=== PATIENT | female | born 1955 | race African-American/Black ===

== ENCOUNTER → 2016-06-18 | Outpatient (CLI) | payer MEDICAID | LOC: WI 14:12 | PROVIDERS: ATTEND Internal Medicine | DX: Z12.31 Encounter for screening mammogram for malignant neoplasm of breast (principal) | CPT/HCPCS: 77067; G0202 ==

== ENCOUNTER → 2016-07-13 | Outpatient (CLI) | payer MEDICAID | LOC: WI 08:05 | PROVIDERS: ATTEND Internal Medicine Gastroenterology | DX: K74.69 Other cirrhosis of liver (principal); R11.0 Nausea; R10.13 Epigastric pain | CPT/HCPCS: 76700 ==

== ENCOUNTER 2016-08-02 20:04 | Emergency (ER) | payer MEDICAID ==
[2016-08-02] MEDS ORDERED: ONDANSETRON HCL INJ/PF 4 MG/2 ML SDV IV ONE (22:45)
[2016-08-02] MEDS ORDERED: NORMAL SALINE 1000 ML 1,000 ML IV ONE (22:45)
[2016-08-02] MEDS ORDERED: MECLIZINE HCL 25 MG TABLET PO ONE (22:45)
--- NOTE | 2016-08-02 22:49 | ER Document Report ---
ED General - General Chief Complaint: Dizziness Stated Complaint: DIZZINESS,SHORTNESS OF BREATH Notes: Patient is a 61-year-old female presents with complaint of nausea and vomiting and dizziness. She says that sometimes she feels as if things are spinning. She says if she stands up too quickly than she feels as if she may pass out. She's had some vomiting no diarrhea. Some right-sided abdominal cramping. She has a history of fibroid surgery. No other surgeries to the abdomen that she is aware of. She has history of hepatitis C and is on medications for this. She has a history of high blood pressure and also takes omeprazole for acid reflux. She is followed by hepatitis C by Dr. Choi. She denies any ongoing chest pain. She says she may have had a brief period of chest tightness when she was vomiting once. Symptoms have been intermittent since Saturday. TRAVEL OUTSIDE OF THE [place] IN LAST 30 DAYS: No - Related Data Allergies/Adverse Reactions: No Known Allergies Allergy (Verified 08/02/16 21:08) Past Medical History - Social History Smoking Status: Former Smoker Frequency of alcohol use: None Drug Abuse: None Family History: Reviewed & Not Pertinent Patient has suicidal ideation: No Patient has homicidal ideation: No - Past Medical History Cardiac Medical History: Reports: Hx Hypertension Renal/ Medical History: Denies: Hx Peritoneal Dialysis GI Medical History: Reports: Hx Gastroesophageal Reflux Disease, Hx Hepatitis - C Infectious Medical History: Reports: Hx Hepatitis - C Past Surgical History: Reports: Hx Section, Hx Gynecologic Surgery - left oophorectomy - Immunizations Hx Diphtheria, Pertussis, Tetanus Vaccination: Yes Hx Pneumococcal Vaccination: 03/20/13 Review of Systems - Review of Systems Notes: My Normal Review Basic REVIEW OF SYSTEMS: CONSTITUTIONAL : Denies fever, chills, or sweats. Denies recent illness. EENT: Denies eye, ear, throat, or mouth pain or symptoms. Denies nasal or sinus congestion. CARDIOVASCULAR: Denies chest pain. RESPIRATORY: Denies cough, cold, or chest congestion. Denies shortness of breath, difficulty breathing, or wheezing. GASTROINTESTINAL: Right-sided abdominal pain. Denies nausea, vomiting, or diarrhea. Denies constipation. Last BM: GENITOURINARY: Denies difficulty urinating, painful urination, burning, frequency, or blood in urine. FEMALE GENITOURINARY: Denies vaginal bleeding, abnormal or irregular periods. MUSCULOSKELETAL: Denies neck or back pain or joint pain or swelling. SKIN: Denies rash or skin lesions. NEUROLOGICAL: Denies altered mental status or loss of consciousness. Denies headache. Denies weakness or paralysis or loss of use of either side. Denies problems with gait or speech. Denies sensory or motor loss. ALL OTHER SYSTEMS REVIEWED AND NEGATIVE. Physical Exam - Vital signs Vitals: Temp Pulse Resp BP Pulse Ox 98.5 F 58 L 18 130/96 H 98 08/02/16 21:02 08/02/16 21:02 08/02/16 21:02 08/02/16 21:02 08/02/16 21:02 - Notes Notes: General Appearance: Well nourished, alert, cooperative, no acute distress, mild obvious discomfort. Vitals: reviewed, See vital signs table. Head: no swelling or tenderness to the head Eyes: PERRL, EOMI, Conjuctiva clear Mouth: No decreasd moisture Neck: Supple, no neck tenderness, No thyromegaly Lungs: No wheezing, No rales, No rhonci, No accessory muscle use, good air exchange bilaterally. Heart: Normal rate, Regular rythm, No murmur, no rub Abdomen: Normal BS, soft, No rigidity, mild right upper quadrant abdominal tenderness to palpation, No guarding, no rebound, no abdominal masses, no organomegaly Extremities: strength 5/5 in all extremities, good pulses in all extremities, no swelling or tenderness in the extremities, no edema. Skin: warm, dry, appropriate color, no rash Neuro: speech clear, oriented x 3, normal affect, responds appropriately to questions. Course - Vital Signs Vital signs: Temp Pulse Resp BP Pulse Ox 98.5 F 58 L 18 130/96 H 98 08/02/16 21:02 08/02/16 21:02 08/02/16 21:02 08/02/16 21:02 08/02/16 21:02 - Laboratory Result Diagrams: 08/02/16 23:13 08/02/16 23:13 Laboratory results interpreted by me: 08/02/16 08/02/16 23:13 23:13 RBC 3.53 L Hgb 11.7 L Hct 33.9 L Plt Count 140 L Seg Neutrophils % 37.0 L Lymphocytes % 53.0 H Absolute Neutrophils 1.6 L Potassium 3.4 L AST 50 H - EKG Interpretation by Me Additional EKG results interpreted by me: 08/03/16 00:28 EKG is reviewed and interpreted by me. EKG shows sinus bradycardia with a rate of [address] segment elevation or depression. Patient does have a T-wave inversion in lead V3 which is unchanged comparison to previous EKG from 2012. She also has a T-wave inversion in 3 with flattening in aVF which again are unchanged comparison to her previous EKG from 03/19/2013. GA interval is prolonged which again is unchanged. QRS duration QTC intervals are within normal range. - Transfer of Care Notes: 08/03/16 01:54 Patient is feeling much improved. She looks well and exam. She's had no further vomiting. Her pain is improved. Shunt gallbladder shows no evidence of infection or stones in the gallbladder. Images shows her chronic cirrhosis of her liver. I suspect that the pain and nausea and vomiting that she had today may have been related to her chronic liver issues. She currently feels much improved and feels safe to be discharged home. I will see her home with nausea medications. I encourage return to ER if she has trouble vomiting, fevers, recurrent pain. Patient agrees with plan and will be discharged home. Dictation of this chart was performed using voice recognition software; therefore, there may be some unintended grammatical errors. Discharge - Discharge Clinical Impression: Vomiting Qualifiers: Vomiting type: unspecified Vomiting Intractability: unspecified Nausea presence : unspecified Qualified Code(s): R11.10 - Vomiting, unspecified Abdominal pain Qualifiers: Abdominal location: right upper quadrant Qualified Code(s): R10.11 - Right upper quadrant pain Condition: Good Disposition: HOME, SELF-CARE Additional Instructions: ABDOMINAL PAIN: There are many causes of abdominal pain. Pain can mean a serious problem requiring surgery (such as appendicitis). It can also be an innocent problem that goes away on its own (such as a viral infection). Often, time must pass to determine the cause of pain. The physician does not feel that hospitalization is necessary, at present. Things may change within the next 24 hours. Call the doctor or come back for re- examination if any problems occur, such as: (1) Pain that becomes more severe, steady, or becomes concentrated in one specific area. Also, pain that is more severe with movement or coughing. (2) Vomiting that persists or becomes more frequent. (3) Blood in the vomitus, urine, or bowel movements. Blood in the stool may have a tarry or black appearance. (4) Shaking chills or fever greater than 100 degrees F. (5) The abdomen becomes more distended or swollen. (6) Bowel movements cease. (7) Failure to improve as expected. NORMAL EXAM AND WORKUP: At this time, your examination and workup show no significant abnormality. No significant abnormal physical findings are noted. All laboratory, EKG, and imaging ( ultrasound) studies that were ordered show no significant abnormality. Although your examination and all studies that were ordered showed no significant abnormal finding, there are no examinations and no studies that are 100% accurate. There is always the possibility that some abnormality could exist and not be detected with physical examination or within the limits and capabilities of laboratory and other studies. You should return or follow up as you were instructed on your visit today for further evaluation if your symptoms do not resolve. ANTINAUSEA MEDICATION: You have been given a medication to suppress nausea and vomiting. This type of medication can be given as a shot, pill, or suppository. It will usually last for many hours. Pills and shots usually last six to eight hours, suppositories last about 12 hours. For the typical illness, only one or two doses of the medication may be necessary. Mild lightheadedness may occur. This type of medicine can cause drowsiness. Do not drive or operate dangerous machinery while under its influence. Do not mix with alcohol. See your doctor at once if you have muscle spasms or tightness, or uncontrollable motions (particularly of the neck, mouth, or jaw). Persistent vomiting or severe lightheadedness should also be evaluated by the physician. FOLLOW-UP CARE: If you have been referred to a physician for follow-up care, call the physician s office for an appointment as you were instructed or within the next two days. If you experience worsening or a significant change in your symptoms, notify the physician immediately or return to the Emergency Department at any time for re-evaluation. FOLLOW-UP CARE: You should return for re-evaluation in 24 hours if you continue to have any pain. This follow-up visit is important. If you are unable to return, or feel that the return visit is unnecessary, please call us. Please return to the ER immediately if you have worsening pain, fevers, vomiting , or feel unwell. Please follow up closely with Dr. Choi for reevaluation. You can take the Zofran, nausea medication as 1 tablet every 4 hours for nausea. Referrals: GIULIANO CISNEROS MD [Primary Care Provider] - Follow up tomorrow SANDEEP CHOI MD [ACTIVE STAFF] - 08/06/16
[2016-08-02 23:52] LABS: ABSOLUTE EOSINOPHILS # (AUTO) 0.1 10^3/uL (0.0-0.6); ABSOLUTE LYMPHOCYTES (AUTO) 2.4 10^3/uL (0.5-4.7); ABSOLUTE MONOCYTES (AUTO) 0.3 10^3/uL (0.1-1.4); ABSOLUTE NEUT (AUTO) 1.6 10^3/uL (1.7-8.2); BASOPHILS % (AUTO) 0.7 % (0-2); EOSINOPHILS % (AUTO) 1.8 % (0-6); HEMATOCRIT 33.9 % (36.0-47.0); HEMOGLOBIN 11.7 g/dL (12.0-15.5); HGB HCT DIFFERENCE 1.2; MEAN CORPUSCULAR HEMOGLOBIN 33.2 pg (27.0-33.4); MEAN CORPUSCULAR HGB CONC 34.5 g/dL (32.0-36.0); MEAN CORPUSCULAR VOLUME 96 fl (80-97); MONOCYTES % (AUTO) 7.5 % (3-13); RED BLOOD COUNT 3.53 10^6/uL (3.72-5.28); RED CELL DISTRIBUTION WIDTH 13.8 % (11.5-14.0); WHITE BLOOD COUNT 4.5 10^3/uL (4.0-10.5)
[2016-08-03 00:10] LABS: ALANINE AMINOTRANSFERASE 33 U/L (9-52); ALBUMIN 4.1 g/dL (3.5-5.0); ALKALINE PHOSPHATASE 90 U/L (38-126); ANION GAP 12 (5-19); ASPARTATE AMINO TRANSFERASE 50 U/L (14-36); BILIRUBIN,DIRECT 0.2 mg/dL (0.0-0.4); BILIRUBIN,TOTAL 0.4 mg/dL (0.2-1.3); BLOOD UREA NITROGEN 13 mg/dL (7-20); CALCIUM 9.8 mg/dL (8.4-10.2); CARBON DIOXIDE 30 mmol/L (22-30); CHLORIDE 98 mmol/L (98-107); CREATINE KINASE 80 U/L (30-135); CREATININE RESULT 0.65 mg/dL (0.52-1.25); GLUCOSE 96 mg/dL (75-110); LIPASE 152.4 U/L (23-300); POTASSIUM 3.4 mmol/L (3.6-5.0); SODIUM 139.9 mmol/L (137-145)
[2016-08-03 00:19] LABS: CREATINE KINASE MB 0.52 ng/mL (<4.55)
[2016-08-03 00:27] LABS: TROPONIN I < 0.012 ng/mL
[2016-08-03 00:41] LABS: APPEARANCE,URINE SLIGHTLY-CLOUDY; BILIRUBIN,URINE NEGATIVE (NEGATIVE); GLUCOSE, URINE NEGATIVE (NEGATIVE); KETONES,URINE NEGATIVE (NEGATIVE); LEUKOCYTE ESTERASE,URINE NEGATIVE (NEGATIVE); NITRITE,URINE NEGATIVE (NEGATIVE); PROTEIN,URINE NEGATIVE (NEGATIVE); URINE SPECIFIC GRAVITY 1.005; UROBILINOGEN,URINE NEGATIVE mg/dL (<2.0)
[2016-08-03] MEDS ORDERED: ONDANSETRON ODT 4 MG TAB (6 TAB/DSPK) PO PRN (01:58)
[2016-08-03 04:15] VITALS: BP 119/72
--- NOTE | 2016-08-03 22:26 | EKG REPORT ---
SEVERITY:- ABNORMAL ECG - SINUS RHYTHM FIRST DEGREE AV BLOCK BORDERLINE LEFT AXIS DEVIATION LOW VOLTAGE IN FRONTAL LEADS BORDERLINE T ABNORMALITIES, DIFFUSE LEADS : Confirmed by: Frieda Sears MD 03-Aug-2016 22:25:45
== END 2016-08-03 04:15 | disposition home or self-care (01) ==
LOC: ER 20:04
DX: R11.2 Nausea with vomiting, unspecified (principal); R42 Dizziness and giddiness; K21.9 Gastro-esophageal reflux disease without esophagitis; R10.11 Right upper quadrant pain; R00.1 Bradycardia, unspecified; B19.20 Unspecified viral hepatitis C without hepatic coma; K74.60 Unspecified cirrhosis of liver; I10 Essential (primary) hypertension; Z79.899 Other long term (current) drug therapy; Z98.890 Other specified postprocedural states; Z87.891 Personal history of nicotine dependence; Z90.79 Acquired absence of other genital organ(s)
CPT/HCPCS: 93005; 99284; 96361; 96374; 36415; 82553; 82550; 83690; 85025; 80053; 81001; 84484; 76705; 93976; 93010; J2405; J7030

== ENCOUNTER 2016-09-04 16:20 | Emergency (ER) | payer MEDICAID ==
--- NOTE | 2016-09-04 17:39 | ER Document Report ---
ED Medical Screen (RME) - General Chief Complaint: Abdominal Pain Stated Complaint: RIGHT SIDE PAIN Time Seen by Provider: 09/04/16 17:37 Mode of Arrival: Ambulatory Information source: Patient Notes: This is a 61-year-old female with a history of hypertension, cirrhosis with abdominal pains in the past. Patient is followed by Dr. Soares as well as Dr. Choi. Patient denies any fever. She states that the pain is just been getting worse. TRAVEL OUTSIDE OF THE [place] IN LAST 30 DAYS: No - Related Data Allergies/Adverse Reactions: No Known Allergies Allergy (Verified 09/04/16 17:20) Past Medical History - Past Medical History Cardiac Medical History: Reports: Hx Hypertension Renal/ Medical History: Denies: Hx Peritoneal Dialysis GI Medical History: Reports: Hx Gastroesophageal Reflux Disease, Hx Hepatitis - C Infectious Medical History: Reports: Hx Hepatitis - C Past Surgical History: Reports: Hx Section, Hx Gynecologic Surgery - left oophorectomy - Immunizations Hx Diphtheria, Pertussis, Tetanus Vaccination: Yes Physical Exam - Vital signs Vitals: Temp Pulse Resp BP Pulse Ox 97.5 F 67 20 157/104 H 99 09/04/16 16:22 09/04/16 16:22 09/04/16 16:22 09/04/16 16:22 09/04/16 16:22 Course - Vital Signs Vital signs: Temp Pulse Resp BP Pulse Ox 97.5 F 67 20 157/104 H 99 09/04/16 16:22 09/04/16 16:22 09/04/16 16:22 09/04/16 16:22 09/04/16 16:22
[2016-09-04 19:02] LABS: ABSOLUTE LYMPHOCYTES (AUTO) 2.3 10^3/uL (0.5-4.7); ABSOLUTE MONOCYTES (AUTO) 0.4 10^3/uL (0.1-1.4); ABSOLUTE NEUT (AUTO) 3.8 10^3/uL (1.7-8.2); BASOPHILS % (AUTO) 0.8 % (0-2); EOSINOPHILS % (AUTO) 0.5 % (0-6); HEMATOCRIT 36.1 % (36.0-47.0); HEMOGLOBIN 12.4 g/dL (12.0-15.5); HGB HCT DIFFERENCE 1.1; LYMPHOCYTES % (AUTO) 34.7 % (13-45); MEAN CORPUSCULAR HEMOGLOBIN 33.5 pg (27.0-33.4); MEAN CORPUSCULAR HGB CONC 34.3 g/dL (32.0-36.0); MEAN CORPUSCULAR VOLUME 98 fl (80-97); MONOCYTES % (AUTO) 6.1 % (3-13); RED BLOOD COUNT 3.69 10^6/uL (3.72-5.28); RED CELL DISTRIBUTION WIDTH 13.3 % (11.5-14.0); SEGMENTED NEUTROPHILS % (AUTO) 57.9 % (42-78); WHITE BLOOD COUNT 6.5 10^3/uL (4.0-10.5)
[2016-09-04 19:03] LABS: APPEARANCE,URINE CLEAR; BILIRUBIN,URINE NEGATIVE (NEGATIVE); GLUCOSE, URINE NEGATIVE (NEGATIVE); KETONES,URINE NEGATIVE (NEGATIVE); LEUKOCYTE ESTERASE,URINE NEGATIVE (NEGATIVE); NITRITE,URINE NEGATIVE (NEGATIVE); PROTEIN,URINE NEGATIVE (NEGATIVE); URINE SPECIFIC GRAVITY 1.008
[2016-09-04 19:21] LABS: ALANINE AMINOTRANSFERASE 30 U/L (9-52); ALBUMIN 4.1 g/dL (3.5-5.0); ALKALINE PHOSPHATASE 66 U/L (38-126); ANION GAP 8 (5-19); ASPARTATE AMINO TRANSFERASE 48 U/L (14-36); BILIRUBIN,DIRECT 0.5 mg/dL (0.0-0.4); BILIRUBIN,TOTAL 0.9 mg/dL (0.2-1.3); BLOOD UREA NITROGEN 12 mg/dL (7-20); CARBON DIOXIDE 33 mmol/L (22-30); CHLORIDE 97 mmol/L (98-107); CREATININE RESULT 0.79 mg/dL (0.52-1.25); GLUCOSE 96 mg/dL (75-110); LIPASE 106.1 U/L (23-300); POTASSIUM 3.6 mmol/L (3.6-5.0); SODIUM 138.3 mmol/L (137-145); TOTAL PROTEIN 8.4 g/dL (6.3-8.2)
--- NOTE | 2016-09-04 21:30 | ER Document Report ---
ED General - General Chief Complaint: Abdominal Pain Stated Complaint: RIGHT SIDE PAIN Time Seen by Provider: 09/04/16 17:37 Mode of Arrival: Ambulatory Notes: Patient is a 61-year-old female with past medical history of hypertension and hyperlipidemia who presents with concerns of 24 hours of a constant, aching, throbbing pain to her suprapubic and left lower quadrant. States that she's intermittent abdominal pain the past but never to this degree of severity or that has persisted for this long. She has not seen her primary care doctor regarding today's concerns. Nothing improves or worsens this pain. She denies any associated nausea, vomiting, diarrhea, fever, melena, hematochezia, chest pain or shortness of breath. TRAVEL OUTSIDE OF THE [place] IN LAST 30 DAYS: No - Related Data Allergies/Adverse Reactions: No Known Allergies Allergy (Verified 09/04/16 17:20) Past Medical History - General Information source: Patient - Social History Smoking Status: Never Smoker Frequency of alcohol use: None Drug Abuse: None Lives with: Family Family History: Reviewed & Not Pertinent Patient has suicidal ideation: No Patient has homicidal ideation: No - Past Medical History Cardiac Medical History: Reports: Hx Hypertension Renal/ Medical History: Denies: Hx Peritoneal Dialysis GI Medical History: Reports: Hx Gastroesophageal Reflux Disease, Hx Hepatitis - C Infectious Medical History: Reports: Hx Hepatitis - C Past Surgical History: Reports: Hx Section, Hx Gynecologic Surgery - left oophorectomy - Immunizations Hx Diphtheria, Pertussis, Tetanus Vaccination: Yes Hx Pneumococcal Vaccination: 03/20/13 Review of Systems - Review of Systems Notes: Constitutional: Negative for fever. HENT: Negative for sore throat. Eyes: Negative for visual changes. Cardiovascular: Negative for chest pain. Respiratory: Negative for shortness of breath. Gastrointestinal: Positive for abdominal pain Genitourinary: Negative for dysuria. Musculoskeletal: Negative for back pain. Skin: Negative for rash. Neurological: Negative for headaches, weakness or numbness. 10 point ROS negative except as marked above and in HPI. Physical Exam - Vital signs Vitals: Temp Pulse Resp BP Pulse Ox 97.5 F 67 20 157/104 H 99 09/04/16 16:22 09/04/16 16:22 09/04/16 16:22 09/04/16 16:22 09/04/16 16:22 Interpretation: Hypertensive Notes: PHYSICAL EXAMINATION: GENERAL: Well-appearing, well-nourished and in no acute distress. HEAD: Atraumatic, normocephalic. EYES: Pupils equal round and reactive to light, extraocular movements intact, sclera anicteric, conjunctiva are normal. ENT: nares patent, oropharynx clear without exudates. Moist mucous membranes. NECK: Normal range of motion, supple without lymphadenopathy LUNGS: Breath sounds clear to auscultation bilaterally and equal. No wheezes rales or rhonchi. HEART: Regular rate and rhythm without murmurs ABDOMEN: Soft, mild tenderness the suprapubic and left lower quadrants, normoactive bowel sounds. No guarding, no rebound. No masses appreciated. EXTREMITIES: Normal range of motion, no pitting or edema. No cyanosis. NEUROLOGICAL: No focal neurological deficits. Moves all extremities spontaneously and on command. PSYCH: Normal mood, normal affect. SKIN: Warm, Dry, normal turgor, no rashes or lesions noted. Course - Re-evaluation Re-evalutation: 09/04/16 21:29 Patient presents with 24 hours of progressively worsening lower abdominal pain mostly localized left lower quadrant on exam. She is otherwise well appearance , no acute distress, vitals normal limits. Labs are overall unremarkable. Will proceed with CT the abdomen and pelvis given patient's age and focal tenderness on exam concerning for possible acute diverticulitis less likely an acute bowel obstruction or bowel perforation. Clinical history and exam are not consistent with mesenteric ischemia. 09/04/16 23:26 CT scan demonstrates a calcified uterine fibroid which could explain some patient's pain given that her pain is over the left lower and suprapubic region on exam. She otherwise remains well in appearance of this time and in no acute distress. Vitals otherwise within normal limits. Discharge with [facility] follow- up.At this time will discharge with return precautions and follow-up recommendations. Verbal discharge instructions given a the bedside and opportunity for questions given. Medication warnings reviewed. Patient is in agreement with this plan and has verbalized understanding of return precautions and the need for primary care follow-up in the next 24-72 hours. - Vital Signs Vital signs: Temp Pulse Resp BP Pulse Ox 97.6 F 89 16 130/77 H 96 09/05/16 00:12 09/05/16 00:12 09/05/16 00:12 09/05/16 00:12 09/05/16 00:12 - Laboratory Result Diagrams: 09/04/16 18:47 09/04/16 18:47 Laboratory results interpreted by me: 09/04/16 09/04/16 09/04/16 18:47 18:47 18:47 RBC 3.69 L MCV 98 H MCH 33.5 H Chloride 97 L Carbon Dioxide 33 H Direct Bilirubin 0.5 H AST 48 H Total Protein 8.4 H Urine Urobilinogen 2.0 H - Diagnostic Test Radiology reviewed: Reports reviewed Discharge - Discharge Clinical Impression: Abdominal pain Qualifiers: Abdominal location: lower abdomen, unspecified Qualified Code(s): R10.30 - Lower abdominal pain, unspecified Uterine fibroid Qualifiers: Uterine leiomyoma location: unspecified location Qualified Code(s): D25.9 - Leiomyoma of uterus, unspecified Condition: Good Disposition: HOME, SELF-CARE Additional Instructions: You have been seen in the Emergency Department (ED) for abdominal pain. Your evaluation did not identify a clear cause of your symptoms but was generally reassuring. You do have uterine fibroids on your CT scan which may account for some of your discomfort. Please follow-up with [facility] at your earliest ability. Please follow up with your doctor as soon as possible regarding today's emergent visit and the symptoms that are bothering you. Return to the ED if your abdominal pain worsens or fails to improve, you develop bloody vomiting, bloody diarrhea, you are unable to tolerate fluids due to vomiting, fever greater than 101, or other symptoms that concern you. Referrals: GIULIANO CISNEROS MD [Primary Care Provider] - Follow up as needed JESSA SKY MD [ACTIVE STAFF] - Follow up as needed
[2016-09-04] MEDS ORDERED: ACETAMINOPHEN 325 MG TABLET PO ONE (23:31)
[2016-09-04] MEDS ORDERED: IBUPROFEN 600 MG TABLET PO ONE (23:31)
[2016-09-05 00:13] VITALS: BP 130/77
== END 2016-09-05 | disposition home or self-care (01) ==
LOC: ER 16:20
DX: R10.30 Lower abdominal pain, unspecified (principal); D25.9 Leiomyoma of uterus, unspecified; I10 Essential (primary) hypertension; E78.5 Hyperlipidemia, unspecified; K21.9 Gastro-esophageal reflux disease without esophagitis; Z86.19 Personal history of other infectious and parasitic diseases
CPT/HCPCS: 99284; 36415; 83690; 85025; 85610; 80053; 81001; 74177; J3490 ×2

== ENCOUNTER 2016-10-11 04:27 | Emergency (ER) | payer MEDICAID ==
[2016-10-11 04:53] LABS: ABSOLUTE BASOPHILS # (AUTO) 0.1 10^3/uL (0.0-0.2); ABSOLUTE EOSINOPHILS # (AUTO) 0.1 10^3/uL (0.0-0.6); ABSOLUTE LYMPHOCYTES (AUTO) 2.8 10^3/uL (0.5-4.7); ABSOLUTE MONOCYTES (AUTO) 0.5 10^3/uL (0.1-1.4); ABSOLUTE NEUT (AUTO) 3.6 10^3/uL (1.7-8.2); BASOPHILS % (AUTO) 0.8 % (0-2); EOSINOPHILS % (AUTO) 0.7 % (0-6); HEMATOCRIT 38.1 % (36.0-47.0); HEMOGLOBIN 12.9 g/dL (12.0-15.5); HGB HCT DIFFERENCE 0.6; LYMPHOCYTES % (AUTO) 40.4 % (13-45); MEAN CORPUSCULAR HEMOGLOBIN 32.9 pg (27.0-33.4); MEAN CORPUSCULAR HGB CONC 33.8 g/dL (32.0-36.0); MEAN CORPUSCULAR VOLUME 97 fl (80-97); MONOCYTES % (AUTO) 7.2 % (3-13); RED BLOOD COUNT 3.91 10^6/uL (3.72-5.28); SEGMENTED NEUTROPHILS % (AUTO) 50.9 % (42-78)
[2016-10-11 05:07] LABS: ALANINE AMINOTRANSFERASE 45 U/L (9-52); ALBUMIN 4.5 g/dL (3.5-5.0); ALKALINE PHOSPHATASE 91 U/L (38-126); ANION GAP 13 (5-19); ASPARTATE AMINO TRANSFERASE 99 U/L (14-36); BILIRUBIN,DIRECT 0.5 mg/dL (0.0-0.4); BILIRUBIN,TOTAL 1.2 mg/dL (0.2-1.3); BLOOD UREA NITROGEN 9 mg/dL (7-20); CALCIUM 10.2 mg/dL (8.4-10.2); CARBON DIOXIDE 30 mmol/L (22-30); CHLORIDE 99 mmol/L (98-107); CREATININE RESULT 0.78 mg/dL (0.52-1.25); GLUCOSE 109 mg/dL (75-110); LIPASE 174.5 U/L (23-300); POTASSIUM 3.3 mmol/L (3.6-5.0); SODIUM 142.3 mmol/L (137-145); TOTAL PROTEIN 9.3 g/dL (6.3-8.2)
[2016-10-11 05:24] LABS: APPEARANCE,URINE CLEAR; BILIRUBIN,URINE NEGATIVE (NEGATIVE); GLUCOSE, URINE NEGATIVE (NEGATIVE); KETONES,URINE TRACE mg/dL (NEGATIVE); LEUKOCYTE ESTERASE,URINE NEGATIVE (NEGATIVE); NITRITE,URINE NEGATIVE (NEGATIVE); PROTEIN,URINE NEGATIVE (NEGATIVE); URINE SPECIFIC GRAVITY 1.005
[2016-10-11] MEDS ORDERED: LIDOCAINE 2% VISCOUS SOLN 20 ML UDCUP PO ONE ×2 (06:30→07:59)
[2016-10-11] MEDS ORDERED: MAG HYDROX/AL HYDROX/SIMETH SUSP 30 ML UDCUP PO ONE ×2 (06:30→07:59)
[2016-10-11] MEDS ORDERED: FAMOTIDINE INJ/PF 20 MG/2 ML SDV IV ONE (06:31)
--- NOTE | 2016-10-11 06:38 | ER Document Report ---
ED GI/ - General Mode of Arrival: Medic Information source: Patient TRAVEL OUTSIDE OF THE [place] IN LAST 30 DAYS: No - HPI Patient complains to provider of: Abdominal pain Onset: Yesterday Timing/Duration: Sudden, Persistent Location: Epigastric Associated symptoms: Fever - Subjective <SHILPA PEÑA - Last Filed: 10/11/16 06:31> <SAJAN LEIGH - Last Filed: 10/11/16 09:02> - General Chief Complaint: Abdominal Pain Stated Complaint: ABDOMINAL PAIN Time Seen by Provider: 10/11/16 06:20 Notes: Patient is a 61-year-old female presenting to the emergency department concerned of epigastric abdominal pain onset yesterday continuing into today. Patient states that she frequently experiences indigestion and constipation. Patient's last bowel movement was yesterday morning after she took a laxative that was prescribed by her primary care provider, Dr. Cisneros. Patient states that she been experiencing a mild fever and has been "gagging". (SHILPA PEÑA) - Related Data Allergies/Adverse Reactions: No Known Allergies Allergy (Verified 09/04/16 17:20) Past Medical History - General Information source: Patient - Social History Smoking Status: Never Smoker Family History: Reviewed & Not Pertinent - Past Medical History Cardiac Medical History: Reports: Hx Hypertension GI Medical History: Reports: Hx Cirrhosis, Hx Gastroesophageal Reflux Disease, Hx Hepatitis - C Infectious Medical History: Reports: Hx Hepatitis - C Past Surgical History: Reports: Hx Section, Hx Gynecologic Surgery - left oophorectomy - Immunizations Hx Diphtheria, Pertussis, Tetanus Vaccination: Yes Hx Pneumococcal Vaccination: 03/20/13 <SHILPA PEÑA - Last Filed: 10/11/16 06:31> Review of Systems - Review of Systems Constitutional: See HPI, Fever - "mild" subjective EENT: No symptoms reported Cardiovascular: No symptoms reported Respiratory: No symptoms reported Gastrointestinal: See HPI, Abdominal pain, Vomiting - "gagging" Genitourinary: No symptoms reported Female Genitourinary: No symptoms reported Musculoskeletal: No symptoms reported Skin: No symptoms reported Hematologic/Lymphatic: No symptoms reported Neurological/Psychological: No symptoms reported -: Yes All other systems reviewed and negative <SHILPA PEÑA - Last Filed: 10/11/16 06:31> Physical Exam - General General appearance: Alert In distress: None - HEENT Head: Normocephalic, Atraumatic Eyes: Normal Pupils: PERRL - Respiratory Respiratory status: No respiratory distress Chest status: Nontender Breath sounds: Normal Chest palpation: Normal - Cardiovascular Rhythm: Regular Heart sounds: Normal auscultation Murmur: No - Abdominal Inspection: Obese - Soft Tenderness: Tender - Epigastric tenderness to palpation - Back Back: Normal, Nontender - Extremities General upper extremity: Normal inspection, Nontender General lower extremity: Normal inspection, Nontender - Neurological Neuro grossly intact: Yes Cognition: Normal Orientation: AAOx4 [place] Coma Scale Eye Opening: Spontaneous Angela Coma Scale Verbal: Oriented [place] Coma Scale Motor: Obeys Commands [place] Coma Scale Total: 15 Speech: Normal - Psychological Associated symptoms: Normal affect, Normal mood - Skin Skin Temperature: Warm Skin Moisture: Dry Skin Color: Normal <SHILPA PEÑA - Last Filed: 10/11/16 06:31> Course - Laboratory Result Diagrams: 10/11/16 04:35 10/11/16 04:35 <SHILPA PEÑA - Last Filed: 10/11/16 06:31> - Laboratory Result Diagrams: 10/11/16 04:35 10/11/16 04:35 <SAJAN LEIGH - Last Filed: 10/11/16 09:02> - Re-evaluation Re-evalutation: 10/11/16 08:00 Patient was taking a nap at this time. She is awakened for reevaluation. He reports when she drank the GI cocktail, it came back up. It did provide some relief but that seemed to be wearing off. On exam there is some epigastric palpation tenderness, but not nearly as bad as initially. She will receive another GI cocktail. 10/11/16 08:59 Patient is again napping. She is awakened for reexam. A second GI cocktail made the pain improve as did the first. She is not really tender to palpate at this time. By history she does have omeprazole at home but is quite vague about whether or not she actually takes it. (SAJAN LEIGH) - Vital Signs Vital signs: Temp Pulse Resp BP Pulse Ox 167/93 H 96 10/11/16 08:03 10/11/16 08:03 - Laboratory Laboratory results interpreted by me: 10/11/16 10/11/16 04:35 05:00 Potassium 3.3 L Direct Bilirubin 0.5 H AST 99 H Total Protein 9.3 H Urine Ketones TRACE H Urine Urobilinogen 2.0 H Discharge <SHILPA PEÑA - Last Filed: 10/11/16 06:31> <SAJAN LEIGH - Last Filed: 10/11/16 09:02> - Discharge Clinical Impression: Epigastric abdominal pain Gastro-esophageal reflux Qualifiers: Esophagitis presence: esophagitis presence not specified Qualified Code(s): K21.9 - Gastro-esophageal reflux disease without esophagitis Condition: Stable Disposition: HOME, SELF-CARE Additional Instructions: Reflux Disease (GERD): Gastro-Esophageal Reflux Disease (GERD) is caused by stomach acid refluxing back up into the esophagus. The valve at the end of the esophagus may be weak. This is common in persons with a hiatal hernia. GERD symptoms can include indigestion, chest pain, heartburn, or food "sticking." Certain foods, alcohol, and aspirin can make GERD worse. Treatment depends on the severity. Usually, antacids or acid-suppressing medicines are used. When the esophagus is acutely inflamed, the physician will often prescribe membrane-protective drugs such as Carafate. Some patients benefit from medication such as Reglan that tightens the valve at the top of the stomach. Avoid those foods that bring on your symptoms. For many people, these foods are coffee, chocolate, onions, garlic, and carbonated drinks. Don't use alcohol, aspirin, caffeine, or tobacco. Don't eat late at night -- within 4 hours of bedtime. Don't over-eat. If necessary, elevate the head of your bed about 4 inches so that stomach acid will not roll up into your esophagus. Call the doctor if you develop severe chest pain, inability to swallow fluids, fever, or worsening symptoms. //////////////////////////////////////////////////////////////////////////////// //////////////////////////////////////////////////////////// Be sure to take your omeprazole every day. Eat a bland diet. Take antacids between meals and at bedtime. Follow-up with Dr. Cisneros in the next few days if not improving. RETURN TO THE EMERGENCY ROOM IF ANY NEW OR WORSENING SYMPTOMS. Referrals: SANDEEP VASQUEZ MD [Primary Care Provider] - Follow up as needed GIULIANO CISNEROS MD [ACTIVE STAFF] - Follow up in 3-5 days Scribe Attestation: 10/11/16 09:02 I personally performed the services described in the documentation, reviewed and edited the documentation which was dictated to the scribe in my presence, and it accurately records my words and actions. (SAJAN LEIGH) Scribe Documentation - Scribe Written by Agatha:: Agatha Estes, 10/11/2016 0631 acting as scribe for :: Aletha <SHILPA PEÑA - Last Filed: 10/11/16 06:31>
--- NOTE | 2016-10-11 07:11 | RADIOLOGY REPORT (SQ) ---
EXAM DESCRIPTION: KUB/ABDOMEN (SINGLE VIEW) COMPLETED DATE/TIME: 10/11/2016 7:01 am REASON FOR STUDY: abd pain, constipation COMPARISON: 05/12/2015. NUMBER OF VIEWS: One view. TECHNIQUE: Supine radiographic image of the abdomen acquired. LIMITATIONS: None. FINDINGS: BOWEL GAS PATTERN: Normal bowel gas pattern. No dilated loops. CALCIFICATIONS: 3.3 cm uterine fibroid of the mid pelvis. SOFT TISSUES: No gross mass or suggestion of organomegaly. HARDWARE: None in the abdomen. BONES: No acute fracture. No worrisome bone lesions. OTHER: No other significant finding. IMPRESSION: NO RADIOGRAPHIC EVIDENCE FOR ACUTE ABDOMINAL DISEASE. Uterine fibroid. TECHNICAL DOCUMENTATION: JOB ID: [id number] [employer] All Rights Reserved
[2016-10-11 09:07] VITALS: BP 137/81
== END 2016-10-11 09:19 | disposition home or self-care (01) ==
LOC: ER 04:27
DX: K21.9 Gastro-esophageal reflux disease without esophagitis (principal); K59.00 Constipation, unspecified; R10.13 Epigastric pain; I10 Essential (primary) hypertension
CPT/HCPCS: 99284; 96374; 36415; 83690; 85025; 80053; 81001; 74000; J3490 ×2; S0028

== ENCOUNTER 2016-10-12 12:25 | Inpatient (IN) | payer MEDICAID ==
--- NOTE | 2016-10-12 13:01 | ER Document Report ---
ED GI/ - General Chief Complaint: Abdominal Pain Stated Complaint: DIRECT ADMIT/ABDOMINAL PAIN Time Seen by Provider: 10/12/16 12:58 Mode of Arrival: Wheelchair Information source: Patient, Relative TRAVEL OUTSIDE OF THE [place] IN LAST 30 DAYS: No - HPI Patient complains to provider of: Abdominal pain, Vomiting Onset: Last week Timing/Duration: Persistent Quality of pain: Achy Severity at maximum: Moderate Severity in ED: Moderate Pain Level: 4 Location: Epigastric, RUQ Associated symptoms: Nausea, Vomiting Exacerbated by: Denies Relieved by: Denies Similar symptoms previously: Yes Recently seen / treated by doctor: Yes Notes: 10/12/16 14:17 Patient is a 61-year-old female who was sent to the emergency room by primary care provider for direct admission related to abdominal pain that has been persistent for at least the past week, unfortunately there were no beds available so she was sent to the emergency room to be held for admission, patient does report right upper quadrant and epigastric abdominal pain, it is been worsening over the past week, she has nausea and "gagging", she is chills but no fever, denies urinary symptoms, was seen in this emergency room yesterday for similar symptoms - Related Data Allergies/Adverse Reactions: No Known Allergies Allergy (Verified 10/12/16 12:43) Past Medical History - General Information source: Patient - Social History Smoking Status: Unknown if Ever Smoked Family History: Reviewed & Not Pertinent Patient has suicidal ideation: No Patient has homicidal ideation: No - Past Medical History Cardiac Medical History: Reports: Hx Hypertension Renal/ Medical History: Denies: Hx Peritoneal Dialysis GI Medical History: Reports: Hx Cirrhosis, Hx Gastroesophageal Reflux Disease, Hx Hepatitis - C Infectious Medical History: Reports: Hx Hepatitis - C Past Surgical History: Reports: Hx Section, Hx Gynecologic Surgery - left oophorectomy - Immunizations Hx Diphtheria, Pertussis, Tetanus Vaccination: Yes Hx Pneumococcal Vaccination: 03/20/13 Review of Systems - Review of Systems Constitutional: No symptoms reported EENT: No symptoms reported Cardiovascular: No symptoms reported Respiratory: No symptoms reported Gastrointestinal: See HPI Genitourinary: No symptoms reported Female Genitourinary: No symptoms reported Musculoskeletal: No symptoms reported Skin: No symptoms reported Hematologic/Lymphatic: No symptoms reported Neurological/Psychological: No symptoms reported -: Yes All other systems reviewed and negative Physical Exam - Vital signs Vitals: Temp Pulse Resp BP Pulse Ox 98.4 F 66 20 146/94 H 97 10/12/16 12:43 10/12/16 12:43 10/12/16 12:43 10/12/16 12:43 10/12/16 12:43 Interpretation: Hypertensive - General General appearance: Alert Notes: Appears to be in pain - HEENT Head: Normocephalic, Atraumatic Eyes: Normal Conjunctiva: Normal Extraocular movements intact: Yes Eyelashes: Normal Pupils: PERRL Mucous membranes: Moist Pharynx: Normal - Respiratory Respiratory status: No respiratory distress - Cardiovascular Rhythm: Regular Heart sounds: Normal auscultation Murmur: No - Abdominal Inspection: Normal Distension: No distension Bowel sounds: Normal Tenderness: Tender - Epigastric and right upper quadrant Organomegaly: No organomegaly - Back Back: Normal - Extremities General upper extremity: Normal inspection, Nontender, Normal color, Normal ROM , Normal temperature General lower extremity: Normal inspection, Nontender, Normal color, Normal ROM , Normal temperature. No: Celi's sign - Neurological Neuro grossly intact: Yes Cognition: Normal Orientation: AAOx4 [place] Coma Scale Eye Opening: Spontaneous [place] Coma Scale Verbal: Oriented [place] Coma Scale Motor: Obeys Commands [place] Coma Scale Total: 15 Speech: Normal Motor strength normal: LUE, RUE, LLE, RLE Sensory: Normal - Psychological Associated symptoms: Normal affect, Normal mood - Skin Skin Temperature: Warm Skin Moisture: Dry Skin Color: Normal Course - Re-evaluation Re-evalutation: 10/12/16 14:19 A brief call was made to Dr. Santiago who does confirm the intended for patient to be a direct admission for abdominal pain, notified him that there were no beds available and patient will be held in the emergency room until a bed becomes available, he is in agreement with this plan is recommended orders have been ordered in the emergency room - Vital Signs Vital signs: Temp Pulse Resp BP Pulse Ox 98.4 F 66 20 146/94 H 97 10/12/16 12:43 10/12/16 12:43 10/12/16 12:43 10/12/16 12:43 10/12/16 12:43 - Laboratory Result Diagrams: 10/12/16 13:35 10/12/16 13:35 - Diagnostic Test Radiology reviewed: Image reviewed, Reports reviewed - Consults Dr Santiago Reason for consultation: 10/12/16 13:08 patient was discussed, he requested Direct admit, unfortunately no available beds at this time, will hold in Ed with recomended treatment, labs, imaging Discharge - Discharge Clinical Impression: Abdominal pain Qualifiers: Abdominal location: generalized Qualified Code(s): R10.84 - Generalized abdominal pain Condition: Stable Disposition: ADMITTED OBSERVATION Admitting Provider: Pamela Unit Admitted: Telemetry
[2016-10-12] MEDS ORDERED: HYDROMORPHONE HCL INJ/PF 2 MG/ML AMPULE IV ONE (13:02)
[2016-10-12] MEDS ORDERED: NORMAL SALINE 1000 ML 1,000 ML IV PRN ×2 (13:02→14:19)
[2016-10-12 13:51] LABS: ABSOLUTE LYMPHOCYTES (AUTO) 2.8 10^3/uL (0.5-4.7); ABSOLUTE MONOCYTES (AUTO) 0.5 10^3/uL (0.1-1.4); ABSOLUTE NEUT (AUTO) 3.5 10^3/uL (1.7-8.2); BASOPHILS % (AUTO) 0.6 % (0-2); EOSINOPHILS % (AUTO) 0.6 % (0-6); HEMATOCRIT 43.5 % (36.0-47.0); HEMOGLOBIN 14.4 g/dL (12.0-15.5); HGB HCT DIFFERENCE -0.3; LYMPHOCYTES % (AUTO) 40.4 % (13-45); MEAN CORPUSCULAR HEMOGLOBIN 32.1 pg (27.0-33.4); MEAN CORPUSCULAR HGB CONC 33.1 g/dL (32.0-36.0); MEAN CORPUSCULAR VOLUME 97 fl (80-97); MONOCYTES % (AUTO) 6.9 % (3-13); RED BLOOD COUNT 4.48 10^6/uL (3.72-5.28); RED CELL DISTRIBUTION WIDTH 13.3 % (11.5-14.0); SEGMENTED NEUTROPHILS % (AUTO) 51.5 % (42-78); WHITE BLOOD COUNT 6.8 10^3/uL (4.0-10.5)
[2016-10-12 14:07] LABS: ALANINE AMINOTRANSFERASE 49 U/L (9-52); ALBUMIN 4.9 g/dL (3.5-5.0); ALKALINE PHOSPHATASE 85 U/L (38-126); ANION GAP 17 (5-19); ASPARTATE AMINO TRANSFERASE 76 U/L (14-36); BILIRUBIN,DIRECT 0.7 mg/dL (0.0-0.4); BILIRUBIN,TOTAL 1.4 mg/dL (0.2-1.3); BLOOD UREA NITROGEN 16 mg/dL (7-20); CARBON DIOXIDE 29 mmol/L (22-30); CHLORIDE 94 mmol/L (98-107); GLUCOSE 82 mg/dL (75-110); LIPASE 208.5 U/L (23-300); SODIUM 139.9 mmol/L (137-145); TOTAL PROTEIN 10.2 g/dL (6.3-8.2)
[2016-10-12] MEDS: HYDROMORPHONE HCL INJ/PF 2 MG/ML AMPULE IV SCH ×2 (14:27→22:22)
--- NOTE | 2016-10-12 14:32 | RADIOLOGY REPORT (SQ) ---
EXAM DESCRIPTION: CT ABD/PELVIS WITH IV ONLY COMPLETED DATE/TIME: 10/12/2016 1:58 pm REASON FOR STUDY: right side abd pain COMPARISON: CT abdomen pelvis 09/04/2016 TECHNIQUE: CT scan of the abdomen and pelvis performed using helical scanning technique with dynamic intravenous contrast injection. No oral contrast. Images reviewed with lung, soft tissue, and bone windows. Reconstructed coronal and sagittal MPR imag es reviewed. Delayed images for evaluation of the urinary system also acquired. All images stored on PACS. All CT scanners at this facility use dose modulation, iterative reconstruction, and/or weight based d osing when appropriate to reduce radiation dose to as low as reasonably achievable (ALARA). [facility]: Dose Right [facility]: CareDose [facility]: Dose Right [facility]: Teradose 4D [facility]: Depop CONTRAST TYPE AND DOSE: contrast/concentration: Isovue 370.00 mg/ml; Total Contrast Delivered: 74.0 ml; Total Saline Delivered: 66.0 ml RENAL FUNCTION: Creatinine 0.78 RADIATION DOSE: 12.65. LIMITATIONS: None. FINDINGS: LOWER CHEST: No significant findings. No nodules or infiltrates. LIVER: Normal size. No masses or dilated ducts. Nodular contour along the left lobe and inferior rig ht lobe liver, question underlying cirrhosis SPLEEN: Normal size. No focal lesions. PANCREAS: No masses. No significant calcifications. No adjacent inflammation or peripancreatic fluid collections. Pancreatic duct not dilated. GALLBLADDER: No identified stones by CT criteria. No inflammatory changes to suggest cholecystitis. ADRENAL GLANDS: No significant masses or asymmetry. RIGHT KIDNEY AND URETER: No solid masses. No significant calcifications. No hydronephrosis or hyd roureter. LEFT KIDNEY AND URETER: No solid masses. No significant calcifications. No hydronephrosis or hydr oureter. AORTA AND VESSELS: No aneurysm. No dissection. Renal arteries, SMA, celiac without stenosis. RETROPERITONEUM: No retroperitoneal adenopathy, hemorrhage or masses. BOWEL AND PERITONEAL CAVITY: No masses or inflammatory changes. No free fluid or peritoneal masses. APPENDIX: Normal. PELVIS: No mass or free fluid. Normal bladder. Normal size female pelvic organs with calcified fibro id along the uterus fundus 2.5 cm in size ABDOMINAL WALL: No masses. No hernias. BONES: Degenerative disc changes at L3-4 with central canal stenosis OTHER: No other significant finding. IMPRESSION: NO SIGNIFICANT OR ACUTE FINDING IN THE ABDOMEN OR PELVIS ON CT SCAN WITH IV CONTRAST. TECHNICAL DOCUMENTATION: JOB ID: [id number] Quality ID # [id number]: Final reports with documentation of one or more dose reduction techniques (e.g., Au tomated exposure control, adjustment of the mA and/or kV according to patient size, use of iterative reconstruction technique) 2010 [employer]- All Rights Reserved
[2016-10-12 14:43] LABS: ALANINE AMINOTRANSFERASE 51 U/L (9-52); ALBUMIN 4.8 g/dL (3.5-5.0); ALKALINE PHOSPHATASE 83 U/L (38-126); AMYLASE 206 U/L (30-110); ASPARTATE AMINO TRANSFERASE 78 U/L (14-36); BILIRUBIN,DIRECT 0.7 mg/dL (0.0-0.4); BILIRUBIN,TOTAL 1.4 mg/dL (0.2-1.3)
[2016-10-12] MEDS: NORMAL SALINE 1000 ML 1,000 ML IV PRN (14:52)
[2016-10-12 19:33] LABS: APPEARANCE,URINE CLEAR; BILIRUBIN,URINE NEGATIVE (NEGATIVE); GLUCOSE, URINE NEGATIVE (NEGATIVE); KETONES,URINE 20 mg/dL (NEGATIVE); LEUKOCYTE ESTERASE,URINE NEGATIVE (NEGATIVE); NITRITE,URINE NEGATIVE (NEGATIVE); PROTEIN,URINE NEGATIVE (NEGATIVE); UROBILINOGEN,URINE NEGATIVE mg/dL (<2.0)
[2016-10-12 19:37] LABS: URINE SPECIFIC GRAVITY > 1.060
--- NOTE | 2016-10-12 20:23 | PDOC H&P ---
History of Present Illness Admission Date/PCP: 10/12/16 13:35 GIULIANO CISNEROS MD History of Present Illness: ROBERTO CARLOS BRITT is a 61 year old female, she came to the office today for evaluation of abdominal pain. She was seen in the emergency room yesterday for the same problem. When she came to the office this afternoon she was very upset she was crying complaining of abdominal pain. I logged in to the hospital system to review the management in the emergency room yesterday, she apparently had a KUB, hemogram and metabolic panel and they were negative and she was discharged from the ER. Patient was examined in the office she was tender in the right lower quadrant of the abdomen, she was admitted directly from the office into the hospital for management. A stat CT scan of the abdomen and pelvis was done, it was negative for acute pathology. The blood work revealed hypercalcemia, calcium of 11. Past Medical History Cardiac Medical History: Reports: Hypertension GI Medical History: Reports: Cirrhosis, Gastroesophageal Reflux Disease, Hepatitis - C Infectious Medical History: Reports: Hepatitis C Past Surgical History Past Surgical History: Reports: Section Social History Smoking Status: Never Smoker Frequency of Alcohol Use: None Hx Recreational Drug Use: No Drugs: None Hx Prescription Drug Abuse: No - Advance Directive Resuscitation Status: Full Code Family History Family History: Reviewed & Not Pertinent Parental Family History Reviewed: Yes Children Family History Reviewed: Yes Sibling(s) Family History Reviewed.: Yes Medication/Allergy Home Medications: Atenolol [Tenormin 50 mg Tablet] 50 mg PO DAILY 10/12/16 Hydrochlorothiazide 25 mg PO DAILY 10/12/16 Lactulose [Constulose 10 gm/15 mL Oral Solution] 10 gm PO BID 10/12/16 Omeprazole 20 mg PO DAILY 10/12/16 Rifaximin [Xifaxan] 550 mg PO BID 10/12/16 Tramadol HCl [Ultram 50 mg Tablet] 50 mg PO Q6HP PRN 10/12/16 Allergies/Adverse Reactions: No Known Allergies Allergy (Verified 10/12/16 12:43) Review of Systems Constitutional: ABSENT: chills, fever(s), headache(s), weight gain, weight loss Eyes: ABSENT: visual disturbances Ears: ABSENT: hearing changes Cardiovascular: ABSENT: chest pain, dyspnea on exertion, edema, orthropnea, palpitations Respiratory: ABSENT: cough, hemoptysis Gastrointestinal: PRESENT: abdominal pain Genitourinary: ABSENT: dysuria, hematuria Musculoskeletal: ABSENT: joint swelling Integumentary: ABSENT: rash, wounds Neurological: ABSENT: abnormal gait, abnormal speech, confusion, dizziness, focal weakness, syncope Psychiatric: ABSENT: anxiety, depression, homidical ideation, suicidal ideation Endocrine: ABSENT: cold intolerance, heat intolerance, menstrual abnormalities, polydipsia, polyuria Hematologic/Lymphatic: ABSENT: easy bleeding, easy bruising, lymphadenopathy Physical Exam Vital Signs: Temp Pulse Resp BP Pulse Ox 99.1 F 67 20 100/65 99 10/12/16 19:35 10/12/16 19:35 10/12/16 19:35 10/12/16 19:35 10/12/16 19:35 Intake & Output 10/11/16 10/12/16 10/13/16 06:59 06:59 06:59 Intake Total 637 Output Total 1 Balance 636 Weight 65 kg General appearance: PRESENT: mild distress Head exam: PRESENT: atraumatic, normocephalic Eye exam: PRESENT: conjunctiva pink, EOMI, PERRLA Ear exam: PRESENT: normal external ear exam Mouth exam: PRESENT: moist, tongue midline Neck exam: PRESENT: full ROM Respiratory exam: PRESENT: clear to auscultation akilah Cardiovascular exam: PRESENT: RRR, +S1, +S2 Vascular exam: PRESENT: normal capillary refill GI/Abdominal exam: PRESENT: normal bowel sounds, soft, tenderness - In the right lower quadrant of the abdomen Rectal exam: PRESENT: deferred Neurological exam: PRESENT: alert, awake, oriented to person, oriented to place , oriented to time, oriented to situation, CN II-XII grossly intact Psychiatric exam: PRESENT: flat affect Skin exam: PRESENT: dry, intact, warm Results Laboratory Results: 10/12/16 18:30 Urine Color YELLOW Urine Appearance CLEAR Urine pH 6.0 Ur Specific Hugo > 1.060 Urine Protein NEGATIVE Urine Glucose (UA) NEGATIVE Urine Ketones 20 H Urine Blood NEGATIVE Urine Nitrite NEGATIVE Ur Leukocyte Esterase NEGATIVE Urine WBC (Auto) 2 Urine RBC (Auto) 2 Impressions: Abdomen/Pelvis CT 10/12/16 12:59 IMPRESSION: NO SIGNIFICANT OR ACUTE FINDING IN THE ABDOMEN OR PELVIS ON CT SCAN WITH IV CONTRAST. Assessment & Plan - Diagnosis (1) Hypercalcemia Is this a current diagnosis for this admission?: YesPlan: She was symptomatic hypercalcemia, PTH will be ordered to determine if this is PTH mediated, she would be treated with IV fluid (2) Right lower quadrant abdominal pain Is this a current diagnosis for this admission?: Yes (3) Liver cirrhosis Qualifiers: Ascites presence: without ascites Is this a current diagnosis for this admission?: YesPlan: She is well compensated liver cirrhosis , hepatitis C related, she is cured of hepatitis C
[2016-10-12] MEDS ORDERED: RIFAXIMIN 200 MG TABLET PO SCH (20:30)
[2016-10-12] MEDS ORDERED: (PENDING PHARMACY ID) (Lactulose [Constulose 10 Gm/15 Ml Oral Solution] 10 GM) PO SCH (20:30)
[2016-10-12] MEDS ORDERED: ATENOLOL 50 MG TABLET PO ONE (21:00)
[2016-10-12] MEDS: RIFAXIMIN 550 MG TABLET PO SCH (21:17)
[2016-10-12] MEDS ORDERED: HYDROMORPHONE HCL INJ/PF 2 MG/ML AMPULE IV SCH (22:00)
[2016-10-12] MEDS: LACTULOSE SYRUP 20 GM/30 ML UDCUP PO SCH (22:22)
[2016-10-13] MEDS: HYDROMORPHONE HCL INJ/PF 2 MG/ML AMPULE IV SCH ×3 (06:58→22:24)
[2016-10-13] MEDS: NORMAL SALINE 1000 ML 1,000 ML IV PRN (06:59)
[2016-10-13] MEDS: LANSOPRAZOLE 15 MG TAB.RAP.DR PO SCH (08:25)
[2016-10-13] MEDS: LACTULOSE SYRUP 20 GM/30 ML UDCUP PO SCH ×2 (10:14→22:24)
[2016-10-13] MEDS: ATENOLOL 50 MG TABLET PO SCH (10:14)
[2016-10-13] MEDS: RIFAXIMIN 550 MG TABLET PO SCH ×2 (10:15→22:24)
[2016-10-13] MEDS ORDERED: NORMAL SALINE 1000 ML 1,000 ML IV PRN (11:55)
--- NOTE | 2016-10-13 11:58 | PDOC PROGRESS REPORT ---
Subjective Progress Note for:: 10/13/16 Subjective:: Patient is currently doing fair. Patient still complaining of her right lower quadrant pain. Patient's CT scan of the abdomen and pelvis was negative. Patient also history of the hepatitis C and see her Dr. Choi. Patient also complains some constipations problems Physical Exam Vital Signs: Temp Pulse Resp BP Pulse Ox 98.3 F 56 L 17 120/65 99 10/13/16 07:26 10/13/16 07:26 10/13/16 07:26 10/13/16 07:26 10/13/16 07:26 Intake & Output 10/12/16 10/13/16 10/14/16 06:59 06:59 06:59 Intake Total 1587 240 Output Total 251 Balance 1336 240 Weight 67.1 kg General appearance: PRESENT: no acute distress, well-developed, well-nourished Head exam: PRESENT: atraumatic, normocephalic Eye exam: PRESENT: conjunctiva pink, EOMI, PERRLA. ABSENT: scleral icterus Ear exam: PRESENT: normal external ear exam Mouth exam: PRESENT: moist, tongue midline Neck exam: PRESENT: full ROM. ABSENT: carotid bruit, JVD, lymphadenopathy, thyromegaly Respiratory exam: PRESENT: clear to auscultation akilah Cardiovascular exam: PRESENT: RRR. ABSENT: diastolic murmur, rubs, systolic murmur Pulses: PRESENT: normal dorsalis pedis pul, +2 pedal pulses bilateral Vascular exam: PRESENT: normal capillary refill GI/Abdominal exam: PRESENT: normal bowel sounds, soft. ABSENT: distended, guarding, mass, organolmegaly, rebound, tenderness Rectal exam: PRESENT: deferred Neurological exam: PRESENT: alert, awake, oriented to person, oriented to place , oriented to time, oriented to situation, CN II-XII grossly intact. ABSENT: motor sensory deficit Psychiatric exam: PRESENT: appropriate affect, normal mood. ABSENT: homicidal ideation, suicidal ideation Skin exam: PRESENT: dry, intact, warm. ABSENT: cyanosis, rash Results Laboratory Results: 10/12/16 18:30 Urine Color YELLOW Urine Appearance CLEAR Urine pH 6.0 Ur Specific [place] > 1.060 Urine Protein NEGATIVE Urine Glucose (UA) NEGATIVE Urine Ketones 20 H Urine Blood NEGATIVE Urine Nitrite NEGATIVE Ur Leukocyte Esterase NEGATIVE Urine WBC (Auto) 2 Urine RBC (Auto) 2 Impressions: Abdomen/Pelvis CT 10/12/16 12:59 IMPRESSION: NO SIGNIFICANT OR ACUTE FINDING IN THE ABDOMEN OR PELVIS ON CT SCAN WITH IV CONTRAST. Assessment & Plan - Diagnosis (1) Hypercalcemia Is this a current diagnosis for this admission?: YesPlan: Continues to IV fluid repeat the calcium is tomorrow and waiting for the PTH result (2) Right lower quadrant abdominal pain Is this a current diagnosis for this admission?: YesPlan: Patient initial CT scan is all negative may be a constipations will get the MiraLAX and if is still persistently the GI evaluations (3) Gastro-esophageal reflux Qualifiers: Esophagitis presence: esophagitis presence not specified Qualified Code (s): K21.9 - Gastro-esophageal reflux disease without esophagitis Is this a current diagnosis for this admission?: YesPlan: Continues to current medications (4) Liver cirrhosis Qualifiers: Ascites presence: without ascites Is this a current diagnosis for this admission?: YesPlan: Stable - Time Time Spent with patient: 15-24 minutes Medications reviewed and adjusted accordingly: Yes Anticipated discharge: Home Within: Other - Inpatient Certification Medical Necessity: Need Close Monitoring Due to Risk of Patient Decompensation, Need For IV Fluids 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
[2016-10-13] MEDS ORDERED: POLYETHYLENE GLYCOL 3350 POWDER 17 GM/1 PACKET PO ONE (16:15)
[2016-10-14 05:04] LABS: HGB HCT DIFFERENCE -0.8; MEAN CORPUSCULAR HEMOGLOBIN 32.3 pg (27.0-33.4); MEAN CORPUSCULAR HGB CONC 32.7 g/dL (32.0-36.0); MEAN CORPUSCULAR VOLUME 99 fl (80-97); RED BLOOD COUNT 3.54 10^6/uL (3.72-5.28); RED CELL DISTRIBUTION WIDTH 12.8 % (11.5-14.0); WHITE BLOOD COUNT 5.4 10^3/uL (4.0-10.5)
[2016-10-14] MEDS: HYDROMORPHONE HCL INJ/PF 2 MG/ML AMPULE IV SCH ×3 (05:04→22:32)
[2016-10-14 05:18] LABS: ANION GAP 9 (5-19); BLOOD UREA NITROGEN 12 mg/dL (7-20); CALCIUM 9.1 mg/dL (8.4-10.2); CARBON DIOXIDE 26 mmol/L (22-30); CHLORIDE 103 mmol/L (98-107); CREATININE RESULT 0.74 mg/dL (0.52-1.25); GLUCOSE 91 mg/dL (75-110); POTASSIUM 3.9 mmol/L (3.6-5.0); SODIUM 138.3 mmol/L (137-145)
[2016-10-14 05:20] LABS: HEMOGLOBIN 11.4 g/dL (12.0-15.5)
[2016-10-14] MEDS: LANSOPRAZOLE 15 MG TAB.RAP.DR PO SCH (08:50)
[2016-10-14] MEDS: POLYETHYLENE GLYCOL 3350 POWDER 17 GM/1 PACKET PO SCH (10:01)
[2016-10-14] MEDS: LACTULOSE SYRUP 20 GM/30 ML UDCUP PO SCH ×2 (10:01→22:32)
[2016-10-14] MEDS: RIFAXIMIN 550 MG TABLET PO SCH ×2 (10:01→22:31)
[2016-10-14] MEDS: ATENOLOL 50 MG TABLET PO SCH (10:01)
--- NOTE | 2016-10-14 13:51 | PDOC PROGRESS REPORT ---
Subjective Progress Note for:: 10/14/16 Subjective:: Patient is currently doing fair. Patient still complaining of her right lower quadrant pain. Patient's CT scan of the abdomen and pelvis was negative. Patient also history of the hepatitis C and see her Dr. Choi. pt all blood work stable Physical Exam Vital Signs: Temp Pulse Resp BP Pulse Ox 98.2 F 63 12 147/94 H 98 10/14/16 07:49 10/14/16 07:49 10/14/16 07:49 10/14/16 07:49 10/14/16 07:49 Intake & Output 10/13/16 10/14/16 10/15/16 06:59 06:59 06:59 Intake Total 1587 1678 Output Total 251 Balance 1336 1678 Weight 67.1 kg 68.1 kg General appearance: PRESENT: no acute distress, well-developed, well-nourished Head exam: PRESENT: atraumatic, normocephalic Eye exam: PRESENT: conjunctiva pink, EOMI, PERRLA. ABSENT: scleral icterus Ear exam: PRESENT: normal external ear exam Mouth exam: PRESENT: moist, tongue midline Neck exam: PRESENT: full ROM. ABSENT: carotid bruit, JVD, lymphadenopathy, thyromegaly Cardiovascular exam: PRESENT: RRR. ABSENT: diastolic murmur, rubs, systolic murmur Pulses: PRESENT: normal dorsalis pedis pul, +2 pedal pulses bilateral Vascular exam: PRESENT: normal capillary refill GI/Abdominal exam: PRESENT: normal bowel sounds, soft. ABSENT: distended, guarding, mass, organolmegaly, rebound, tenderness Rectal exam: PRESENT: deferred Neurological exam: PRESENT: alert, awake, oriented to person, oriented to place , oriented to time, oriented to situation, CN II-XII grossly intact. ABSENT: motor sensory deficit Psychiatric exam: PRESENT: appropriate affect, normal mood. ABSENT: homicidal ideation, suicidal ideation Skin exam: PRESENT: dry, intact, warm. ABSENT: cyanosis, rash Results Laboratory Results: 10/14/16 04:30 10/14/16 04:30 10/14/16 10/14/16 04:30 04:30 WBC 5.4 RBC 3.54 L Hgb 11.4 L D Hct 35.0 L MCV 99 H MCH 32.3 MCHC 32.7 RDW 12.8 Plt Count 137 L Sodium 138.3 Potassium 3.9 Chloride 103 Carbon Dioxide 26 Anion Gap 9 BUN 12 Creatinine 0.74 Est GFR ( Amer) > 60 Est GFR (Non-Af Amer) > 60 Glucose 91 Calcium 9.1 10/12/16 18:30 Clean Catch Midstream Urine Culture - Final Mixed Urogenital Yamilex Impressions: Abdomen/Pelvis CT 10/12/16 12:59 IMPRESSION: NO SIGNIFICANT OR ACUTE FINDING IN THE ABDOMEN OR PELVIS ON CT SCAN WITH IV CONTRAST. Assessment & Plan - Diagnosis (1) Hypercalcemia Is this a current diagnosis for this admission?: YesPlan: Continues to IV fluid repeat the calcium is tomorrow and waiting for the PTH result (2) Right lower quadrant abdominal pain Is this a current diagnosis for this admission?: YesPlan: if persist need cosult dr hernandez in am (3) Gastro-esophageal reflux Qualifiers: Esophagitis presence: esophagitis presence not specified Qualified Code (s): K21.9 - Gastro-esophageal reflux disease without esophagitis Is this a current diagnosis for this admission?: YesPlan: Continues to current medications (4) Liver cirrhosis Qualifiers: Ascites presence: without ascites Is this a current diagnosis for this admission?: YesPlan: Stable - Time Time Spent with patient: 15-24 minutes Medications reviewed and adjusted accordingly: Yes Anticipated discharge: Home Within: within 24 hours - Inpatient Certification Medical Necessity: Need Close Monitoring Due to Risk of Patient Decompensation 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
[2016-10-15 04:45] LABS: HEMATOCRIT 35.1 % (36.0-47.0); HEMOGLOBIN 11.5 g/dL (12.0-15.5); HGB HCT DIFFERENCE -0.6; MEAN CORPUSCULAR HEMOGLOBIN 32.3 pg (27.0-33.4); MEAN CORPUSCULAR HGB CONC 32.9 g/dL (32.0-36.0); MEAN CORPUSCULAR VOLUME 98 fl (80-97); RED BLOOD COUNT 3.57 10^6/uL (3.72-5.28); RED CELL DISTRIBUTION WIDTH 12.8 % (11.5-14.0); WHITE BLOOD COUNT 5.4 10^3/uL (4.0-10.5)
[2016-10-15 05:12] LABS: ANION GAP 9 (5-19); BLOOD UREA NITROGEN 9 mg/dL (7-20); CALCIUM 9.2 mg/dL (8.4-10.2); CARBON DIOXIDE 26 mmol/L (22-30); CHLORIDE 105 mmol/L (98-107); CREATININE RESULT 0.63 mg/dL (0.52-1.25); GLUCOSE 93 mg/dL (75-110); POTASSIUM 3.8 mmol/L (3.6-5.0); SODIUM 139.7 mmol/L (137-145)
[2016-10-15] MEDS: HYDROMORPHONE HCL INJ/PF 2 MG/ML AMPULE IV SCH ×3 (06:14→22:23)
[2016-10-15] MEDS: ATENOLOL 50 MG TABLET PO SCH (09:18)
[2016-10-15] MEDS: LACTULOSE SYRUP 20 GM/30 ML UDCUP PO SCH ×2 (09:18→22:24)
[2016-10-15] MEDS: LANSOPRAZOLE 15 MG TAB.RAP.DR PO SCH (09:18)
[2016-10-15] MEDS: POLYETHYLENE GLYCOL 3350 POWDER 17 GM/1 PACKET PO SCH (09:18)
[2016-10-15] MEDS: RIFAXIMIN 550 MG TABLET PO SCH ×2 (09:19→22:24)
--- NOTE | 2016-10-15 20:02 | PDOC PROGRESS REPORT ---
Subjective Progress Note for:: 10/15/16 Subjective:: She was admitted over the weekend for observation and management of hypercalcemia, abdominal pain Physical Exam Vital Signs: Temp Pulse Resp BP Pulse Ox 98.4 F 72 16 131/98 H 100 10/15/16 15:39 10/15/16 15:39 10/15/16 15:39 10/15/16 15:39 10/15/16 15:39 Intake & Output 10/14/16 10/15/16 10/16/16 06:59 06:59 06:59 Intake Total 1545 2085 Output Total 700 Balance 845 2085 Weight 68 kg General appearance: PRESENT: no acute distress Eye exam: PRESENT: PERRLA Cardiovascular exam: PRESENT: +S1, +S2 GI/Abdominal exam: PRESENT: soft Neurological exam: PRESENT: alert Results Laboratory Results: 10/15/16 04:25 10/15/16 04:25 10/15/16 10/15/16 04:25 04:25 WBC 5.4 RBC 3.57 L Hgb 11.5 L Hct 35.1 L MCV 98 H MCH 32.3 MCHC 32.9 RDW 12.8 Plt Count 135 L Sodium 139.7 Potassium 3.8 Chloride 105 Carbon Dioxide 26 Anion Gap 9 BUN 9 Creatinine 0.63 Est GFR ( Amer) > 60 Est GFR (Non-Af Amer) > 60 Glucose 93 Calcium 9.2 Impressions: Abdomen/Pelvis CT 10/12/16 12:59 IMPRESSION: NO SIGNIFICANT OR ACUTE FINDING IN THE ABDOMEN OR PELVIS ON CT SCAN WITH IV CONTRAST. Assessment & Plan - Diagnosis (1) Hypercalcemia Is this a current diagnosis for this admission?: Yes (2) Right lower quadrant abdominal pain Is this a current diagnosis for this admission?: Yes (3) Liver cirrhosis Qualifiers: Ascites presence: without ascites Is this a current diagnosis for this admission?: Yes
[2016-10-16] MEDS: HYDROMORPHONE HCL INJ/PF 2 MG/ML AMPULE IV SCH ×2 (05:27→16:47)
[2016-10-16 07:24] LABS: HEMOGLOBIN 11.6 g/dL (12.0-15.5); HGB HCT DIFFERENCE -0.2; MEAN CORPUSCULAR HEMOGLOBIN 32.6 pg (27.0-33.4); MEAN CORPUSCULAR HGB CONC 33.3 g/dL (32.0-36.0); MEAN CORPUSCULAR VOLUME 98 fl (80-97); RED BLOOD COUNT 3.57 10^6/uL (3.72-5.28); RED CELL DISTRIBUTION WIDTH 12.9 % (11.5-14.0); WHITE BLOOD COUNT 5.7 10^3/uL (4.0-10.5)
[2016-10-16 07:40] LABS: ANION GAP 10 (5-19); BLOOD UREA NITROGEN 6 mg/dL (7-20); CALCIUM 8.7 mg/dL (8.4-10.2); CARBON DIOXIDE 26 mmol/L (22-30); CHLORIDE 103 mmol/L (98-107); CREATININE RESULT 0.58 mg/dL (0.52-1.25); GLUCOSE 82 mg/dL (75-110); POTASSIUM 3.6 mmol/L (3.6-5.0); SODIUM 138.7 mmol/L (137-145)
[2016-10-16] MEDS: LANSOPRAZOLE 15 MG TAB.RAP.DR PO SCH (11:18)
[2016-10-16] MEDS: ATENOLOL 50 MG TABLET PO SCH (11:18)
[2016-10-16] MEDS: POLYETHYLENE GLYCOL 3350 POWDER 17 GM/1 PACKET PO SCH (11:18)
[2016-10-16] MEDS: LACTULOSE SYRUP 20 GM/30 ML UDCUP PO SCH (11:19)
[2016-10-16] MEDS: RIFAXIMIN 550 MG TABLET PO SCH (11:19)
[2016-10-16] MEDS ORDERED: FENTANYL CITRATE INJ/PF 100 MCG/2 ML AMPUL ONE (15:07)
[2016-10-16] MEDS ORDERED: MIDAZOLAM 2 MG/2 ML INJ ONE (15:07)
[2016-10-16] MEDS ORDERED: NALOXONE HCL INJ/PF 0.4 MG/1 ML SDV ONE (15:07)
[2016-10-16] MEDS ORDERED: GLUCAGON,HUMAN RECOMB 1 MG INJ ONE (15:08)
[2016-10-16] MEDS ORDERED: FLUMAZENIL INJ 0.5 MG/5 ML VIAL IV ONE (15:08)
[2016-10-16] MEDS ORDERED: EPINEPHRINE INJ 1 MG/10 ML DISP.SYRIN ONE (15:08)
--- NOTE | 2016-10-16 18:10 | PDOC CONSULTATION ---
Consultation Consult Date: 10/15/16 History of Present Illness Admission Date/PCP: 10/14/16 15:05 GIULIANO CISNEROS MD History of Present Illness: This is a 61-year-old patient admitted on 10/12/2016 with abdominal pain. According to the patient she has been having increased pain for the last month. The pain is in the epigastrium on the right upper quadrant. The pain comes and goes with no particular relationship to food or to bowel movement. On admission she had a normal CBC with a hemoglobin of 14, normal Chem-7, mildly elevated bilirubin of 1.4 and AST of 78. Lipase and amylase were unremarkable. Her calcium was high and this is been corrected with IV fluids. She had a CAT scan of the abdomen and pelvis with IV contrast and this was unremarkable except for nodular contour0.1 me know when when that finishes when she wakes up 1 is 1 of the liver consistent with cirrhosis Past Medical History Cardiac Medical History: Reports: Hypertension Neurological Medical History: Denies: Seizures GI Medical History: Reports: Cirrhosis, Gastroesophageal Reflux Disease, Hepatitis - C Infectious Medical History: Reports: Hepatitis C Past Surgical History Past Surgical History: Reports: Section, Hysterectomy Social History Smoking Status: Never Smoker Frequency of Alcohol Use: None Hx Recreational Drug Use: No Drugs: None Hx Prescription Drug Abuse: No - Advance Directive Resuscitation Status: Full Code Family History Family History: Reviewed & Not Pertinent Parental Family History Reviewed: No Children Family History Reviewed: NA Sibling(s) Family History Reviewed.: NA Medication/Allergy Home Medications: Atenolol [Tenormin 50 mg Tablet] 50 mg PO DAILY 10/12/16 Hydrochlorothiazide 25 mg PO DAILY 10/12/16 Lactulose [Constulose 10 gm/15 mL Oral Solution] 10 gm PO BID 10/12/16 Omeprazole 20 mg PO DAILY 10/12/16 Rifaximin [Xifaxan] 550 mg PO BID 10/12/16 Tramadol HCl [Ultram 50 mg Tablet] 50 mg PO Q6HP PRN 10/12/16 Allergies/Adverse Reactions: No Known Allergies Allergy (Verified 10/12/16 12:43) Review of Systems All systems: reviewed and no additional remarkable complaints except as stated Physical Exam Vital Signs: Temp Pulse Resp BP Pulse Ox 98.6 F 60 12 129/78 H 100 10/16/16 17:39 10/16/16 18:00 10/16/16 18:00 10/16/16 18:00 10/16/16 18:00 Intake & Output 10/15/16 10/16/16 10/17/16 06:59 06:59 06:59 Intake Total 1545 3708 Output Total 700 300 Balance 845 3408 Weight 68 kg 66.9 kg Exam: General: Patient is alert and looks well. HEENT: There is no pallor or jaundice. PERRLA. Oropharynx normal Respiratory: No chest deformity. No respiratory distress. Chest wall palpitation was unremarkable. Breath sounds were normal Cardiovascular: Heart sounds 1 and 2 normal with no murmurs. Abdominal: Not distended. Soft and nontender. Liver and spleen not palpable. No ascites demonstrated. Bowel sounds active. Rectal examination was deferred. Extremities: No edema Neurological: Alert and oriented x4. Grossly nonfocal. Normal speech Skin: No significant rash Psychological: Normal affect Results Laboratory Results: 10/16/16 06:15 10/16/16 06:15 10/16/16 10/16/16 06:15 06:15 WBC 5.7 RBC 3.57 L Hgb 11.6 L Hct 35.0 L MCV 98 H MCH 32.6 MCHC 33.3 RDW 12.9 Plt Count 136 L Sodium 138.7 Potassium 3.6 Chloride 103 Carbon Dioxide 26 Anion Gap 10 BUN 6 L Creatinine 0.58 Est GFR ( Amer) > 60 Est GFR (Non-Af Amer) > 60 Glucose 82 Calcium 8.7 Impressions: Abdomen/Pelvis CT 10/12/16 12:59 IMPRESSION: NO SIGNIFICANT OR ACUTE FINDING IN THE ABDOMEN OR PELVIS ON CT SCAN WITH IV CONTRAST. Assessment & Plan - Diagnosis (1) Right upper quadrant abdominal pain Is this a current diagnosis for this admission?: YesPlan: The etiology for her abdominal pain is unclear. Her blood work and CAT scan have been unremarkable. She will undergo an EGD for further evaluation. Her last colonoscopy was in April 2014 and this was unremarkable. She had another EGD in November 2015 that only showed gastritis. I suspect her pain is functional in nature. She admits to being under more stress lately (2) Hepatitis C Is this a current diagnosis for this admission?: YesPlan: She still has active hepatitis C and has not undergone treatment so far. She has been very noncompliant with office visits and instructions (3) Liver cirrhosis Qualifiers: Ascites presence: without ascites Is this a current diagnosis for this admission?: Yes (4) Epigastric abdominal pain Is this a current diagnosis for this admission?: Yes (5) Gastro-esophageal reflux Qualifiers: Esophagitis presence: esophagitis presence not specified Qualified Code (s): K21.9 - Gastro-esophageal reflux disease without esophagitis Is this a current diagnosis for this admission?: Yes
--- NOTE | 2016-10-16 18:11 | Operative Report ---
Operative Report DATE OF SURGERY: 10/16/16 Operative Report: Pre-op diagnosis: Epigastric pain Post-op diagnosis: Normal EGD Surgery: Esophagogastroduodenoscopy with biopsy Medications: Versed mg Fentanyl mcg IV push Tissue removed: Antral biopsy for pathology Procedure: After informed consent obtained from patient, the throat was sprayed with Hurricane and conscious sedation was achieved. The upper endoscope was inserted into the esophagus under direct vision and advanced into the stomach. The duodenum was entered and examined to the second part. Endoscope was then slowly pulled out of the patient as the mucosa was examined into details. Patient tolerated procedure well. Findings Esophagus: Normal Z-line at: 38 cm Antrum: Normal Body: Normal Fundus: Normal Duodenum first part: Normal Duodenum second part: Normal Plan: Await pathology OPERATION: .
--- NOTE | 2016-10-16 19:36 | PDOC DISCHARGE SUMMARY ---
General - Admit/Disc Date/PCP Admission Date/Primary Care Provider: 10/14/16 15:05 GIULIANO CISNEROS MD Discharge Date: 10/16/16 - Discharge Diagnosis (1) Hypercalcemia Is this a current diagnosis for this admission?: Yes (2) Right lower quadrant abdominal pain Is this a current diagnosis for this admission?: Yes (3) Liver cirrhosis Is this a current diagnosis for this admission?: Yes - Additional Information Resuscitation Status: Full Code Home Medications: Atenolol [Tenormin 50 mg Tablet] 50 mg PO DAILY 10/12/16 Hydrochlorothiazide 25 mg PO DAILY 10/12/16 Lactulose [Constulose 10 gm/15 mL Oral Solution] 10 gm PO BID 10/12/16 Omeprazole 20 mg PO DAILY 10/12/16 Rifaximin [Xifaxan] 550 mg PO BID 10/12/16 Tramadol HCl [Ultram 50 mg Tablet] 50 mg PO Q6HP PRN 10/12/16 History of Present Illness History of Present Illness: ROBERTO CARLOS BRITT is a 61 year old female, she came to the office today for evaluation of abdominal pain. She was seen in the emergency room yesterday for the same problem. When she came to the office this afternoon she was very upset she was crying complaining of abdominal pain. I logged in to the hospital system to review the management in the emergency room yesterday, she apparently had a KUB, hemogram and metabolic panel and they were negative and she was discharged from the ER. Patient was examined in the office she was tender in the right lower quadrant of the abdomen, she was admitted directly from the office into the hospital for management. A stat CT scan of the abdomen and pelvis was done, it was negative for acute pathology. The blood work revealed hypercalcemia, calcium of 11. Hospital Course Hospital Course: She was admitted because of symptomatic hypercalcemia, abdominal pain, CT of the abdomen and pelvis was negative. She was seen by GI Dr. Choi and EGD was done which was carlos. She was treated with IV fluid normal saline with normalization of the calcium Physical Exam Vital Signs: Temp Pulse Resp BP Pulse Ox 97.9 F 73 16 119/91 H 99 10/16/16 18:41 10/16/16 18:41 10/16/16 18:20 10/16/16 18:41 10/16/16 18:41 Intake & Output 10/15/16 10/16/16 10/17/16 06:59 06:59 06:59 Intake Total 1545 3708 1450 Output Total 700 300 Balance 845 3408 1450 Weight 68 kg 66.9 kg General appearance: PRESENT: no acute distress, well-developed, well-nourished Head exam: PRESENT: atraumatic, normocephalic Eye exam: PRESENT: PERRLA Ear exam: PRESENT: normal external ear exam Mouth exam: PRESENT: moist, tongue midline Neck exam: PRESENT: full ROM Respiratory exam: PRESENT: clear to auscultation akilah Cardiovascular exam: PRESENT: RRR, +S1, +S2 Vascular exam: PRESENT: normal capillary refill GI/Abdominal exam: PRESENT: normal bowel sounds, soft Rectal exam: PRESENT: deferred Neurological exam: PRESENT: alert, CN II-XII grossly intact. ABSENT: motor sensory deficit Psychiatric exam: PRESENT: appropriate affect, normal mood Skin exam: PRESENT: dry, intact, warm Results Laboratory Results: 10/16/16 06:15 10/16/16 06:15 10/16/16 10/16/16 06:15 06:15 WBC 5.7 RBC 3.57 L Hgb 11.6 L Hct 35.0 L MCV 98 H MCH 32.6 MCHC 33.3 RDW 12.9 Plt Count 136 L Sodium 138.7 Potassium 3.6 Chloride 103 Carbon Dioxide 26 Anion Gap 10 BUN 6 L Creatinine 0.58 Est GFR ( Amer) > 60 Est GFR (Non-Af Amer) > 60 Glucose 82 Calcium 8.7 Impressions: Abdomen/Pelvis CT 10/12/16 12:59 IMPRESSION: NO SIGNIFICANT OR ACUTE FINDING IN THE ABDOMEN OR PELVIS ON CT SCAN WITH IV CONTRAST.
[2016-10-16 19:48] VITALS: BP 146/95
== END 2016-10-16 20:15 | disposition home or self-care (01) | DRG 641 ==
LOC: ER 12:25 → EH 13:35 → UNDOADMOB 13:35 → 3S 13:35 → 5 20:30 → OBSVTOIN 10-14 15:05
PROVIDERS: ADMIT Internal Medicine; ATTEND Internal Medicine
PROC: 0DB68ZX Excision of Stomach, Via Natural or Artificial Opening Endoscopic, Diagnostic (ICD-10-PCS; principal; 2016-10-16 18:30)
DX: E83.52 Hypercalcemia (principal); R10.31 Right lower quadrant pain; K74.60 Unspecified cirrhosis of liver; K21.9 Gastro-esophageal reflux disease without esophagitis; B19.20 Unspecified viral hepatitis C without hepatic coma; I10 Essential (primary) hypertension; Z79.899 Other long term (current) drug therapy; Z90.710 Acquired absence of both cervix and uterus
CPT/HCPCS: 36415; 43239; 74177; 80048; 80053; 80076; 81001; 82140; 82150; 82962; 83690; 83970; 85025; 85027; 87040; 87086; 88305; 88342; A9270-GY; G0378; J0171; J1170; J1610; J2250; J2310; J3010; J3490; J7030

== ENCOUNTER → 2017-06-25 | Outpatient (CLI) | payer MEDICAID ==
[2017-06-25 09:51] LABS: HEMATOCRIT 36.2 % (36.0-47.0); HEMOGLOBIN 12.3 g/dL (12.0-15.5); MEAN CORPUSCULAR HEMOGLOBIN 32.9 pg (27.0-33.4); MEAN CORPUSCULAR HGB CONC 34.1 g/dL (32.0-36.0); MEAN CORPUSCULAR VOLUME 97 fl (80-97); PLATELET COUNT 161 10^3/uL (150-450); RED BLOOD COUNT 3.76 10^6/uL (3.72-5.28); RED CELL DISTRIBUTION WIDTH 13.2 % (11.5-14.0); WHITE BLOOD COUNT 5.6 10^3/uL (4.0-10.5)
[2017-06-25 10:11] LABS: ALANINE AMINOTRANSFERASE 20 U/L (9-52); ALBUMIN 4.4 g/dL (3.5-5.0); ALKALINE PHOSPHATASE 54 U/L (38-126); ANION GAP 9 (5-19); ASPARTATE AMINO TRANSFERASE 26 U/L (14-36); BILIRUBIN,DIRECT 0.4 mg/dL (0.0-0.4); BILIRUBIN,TOTAL 0.6 mg/dL (0.2-1.3); BLOOD UREA NITROGEN 17 mg/dL (7-20); CARBON DIOXIDE 32 mmol/L (22-30); CHLORIDE 102 mmol/L (98-107); GLUCOSE 99 mg/dL (75-110); LIPASE 161.1 U/L (23-300); POTASSIUM 3.7 mmol/L (3.6-5.0); SODIUM 142.5 mmol/L (137-145); TOTAL PROTEIN 8.4 g/dL (6.3-8.2)
--- NOTE | 2017-06-25 10:40 | RADIOLOGY REPORT (SQ) ---
EXAM DESCRIPTION: U/S ABDOMEN LIMITED W/O DOP COMPLETED DATE/TIME: 06/25/2017 10:29 am REASON FOR STUDY: R10.13 EPIGASTRIC PAIN K74.69 OTHER CIRRHOSIS OF LIVER R10.13 EPIGASTRIC PAIN K74 .69 OTHER CIRRHOSIS OF LIVER COMPARISON: None. TECHNIQUE: Dynamic and static grayscale images acquired of the abdomen and recorded on PACS. Additio nal selected color Doppler and spectral images recorded. LIMITATIONS: None. FINDINGS: PANCREAS: No masses. Visualized pancreatic duct normal caliber. LIVER: Coarse hepatic echotexture. No mass identified. LIVER VASCULATURE: Normal directional flow of the main portal vein and hepatic veins. GALLBLADDER: No stones. Normal wall thickness. No pericholecystic fluid. ULTRASOUND-DETECTED DICKSON'S SIGN: Negative. INTRAHEPATIC DUCTS AND COMMON DUCT: CBD and intrahepatic ducts normal caliber. No filling defects. INFERIOR VENA CAVA: Normal flow. AORTA: No aneurysm. RIGHT KIDNEY: Normal size. Normal echogenicity. No solid or suspicious masses. No hydronephrosis. No calcifications. PERITONEAL AND RIGHT PLEURAL SPACE: No ascites or effusions. OTHER: No other significant findings. IMPRESSION: Medical hepatic disease. No acute findings. TECHNICAL DOCUMENTATION: JOB ID: [id number] [employer]- All Rights Reserved Reading location - IP/workstation name: [email or web address]
== END ==
LOC: RAD 09:57
PROVIDERS: ATTEND Internal Medicine Gastroenterology
DX: R10.13 Epigastric pain (principal); K74.69 Other cirrhosis of liver; B18.2 Chronic viral hepatitis C
CPT/HCPCS: 36415; 76705; 80048; 80076; 83690; 85027

== ENCOUNTER 2017-11-09 13:37 | Emergency (ER) | payer MEDICAID ==
[2017-11-09 14:03] LABS: ABSOLUTE EOSINOPHILS # (AUTO) 0.1 10^3/uL (0.0-0.6); ABSOLUTE LYMPHOCYTES (AUTO) 2.3 10^3/uL (0.5-4.7); ABSOLUTE MONOCYTES (AUTO) 0.4 10^3/uL (0.1-1.4); ABSOLUTE NEUT (AUTO) 2.3 10^3/uL (1.7-8.2); BASOPHILS % (AUTO) 0.6 % (0-2); EOSINOPHILS % (AUTO) 1.4 % (0-6); HEMATOCRIT 36.8 % (36.0-47.0); HEMOGLOBIN 12.5 g/dL (12.0-15.5); LYMPHOCYTES % (AUTO) 45.2 % (13-45); MEAN CORPUSCULAR HEMOGLOBIN 32.7 pg (27.0-33.4); MEAN CORPUSCULAR HGB CONC 34.1 g/dL (32.0-36.0); MEAN CORPUSCULAR VOLUME 96 fl (80-97); MONOCYTES % (AUTO) 8.2 % (3-13); PLATELET COUNT 165 10^3/uL (150-450); RED BLOOD COUNT 3.84 10^6/uL (3.72-5.28); RED CELL DISTRIBUTION WIDTH 13.3 % (11.5-14.0); SEGMENTED NEUTROPHILS % (AUTO) 44.6 % (42-78); TOTAL CELLS COUNTED % (AUTO) 100 %; WHITE BLOOD COUNT 5.2 10^3/uL (4.0-10.5)
[2017-11-09 14:11] LABS: ALANINE AMINOTRANSFERASE 16 U/L (9-52); ALBUMIN 4.4 g/dL (3.5-5.0); ALKALINE PHOSPHATASE 54 U/L (38-126); ANION GAP 10 (5-19); ASPARTATE AMINO TRANSFERASE 27 U/L (14-36); BILIRUBIN,DIRECT 0.3 mg/dL (0.0-0.4); BILIRUBIN,TOTAL 0.7 mg/dL (0.2-1.3); BLOOD UREA NITROGEN 13 mg/dL (7-20); CALCIUM 9.8 mg/dL (8.4-10.2); CARBON DIOXIDE 32 mmol/L (22-30); CHLORIDE 101 mmol/L (98-107); CREATINE KINASE 90 U/L (30-135); GLUCOSE 107 mg/dL (75-110); POTASSIUM 3.7 mmol/L (3.6-5.0); SODIUM 143.2 mmol/L (137-145); TOTAL PROTEIN 8.4 g/dL (6.3-8.2)
--- NOTE | 2017-11-09 14:15 | ER Document Report ---
ED General - General Chief Complaint: Dizziness Stated Complaint: DIZZY Time Seen by Provider: 11/09/17 14:13 Mode of Arrival: Medic Information source: Patient Notes: 62-year-old female presents emergency department with complaints of generalized weakness, lightheadedness, nausea, suprapubic abdominal pain. Patient states his symptoms started last night. Patient states that today when she went to stand up she felt lightheaded like she was going to pass out. She denies any falls. No head injury no loss of consciousness. Patient denies any chest pain or shortness of breath. She states that she has been having suprapubic abdominal pain with some dysuria. Patient denies increased urgency or frequency. TRAVEL OUTSIDE OF THE [place] IN LAST 30 DAYS: No - HPI Onset: Yesterday Onset/Duration: Gradual Quality of pain: Achy Severity: Mild Associated symptoms: Nausea Exacerbated by: Denies Relieved by: Denies Similar symptoms previously: No Recently seen / treated by doctor: No - Related Data Allergies/Adverse Reactions: No Known Allergies Allergy (Verified 10/12/16 12:43) Past Medical History - Social History Smoking Status: Never Smoker Chew tobacco use (# tins/day): No Frequency of alcohol use: None Drug Abuse: None Family History: Reviewed & Not Pertinent Patient has suicidal ideation: No Patient has homicidal ideation: No - Past Medical History Cardiac Medical History: Reports: Hx Hypertension Neurological Medical History: Denies: Hx Seizures Renal/ Medical History: Denies: Hx Peritoneal Dialysis GI Medical History: Reports: Hx Cirrhosis, Hx Gastroesophageal Reflux Disease, Hx Hepatitis - C Infectious Medical History: Reports: Hx Hepatitis - C Past Surgical History: Reports: Hx Section, Hx Gynecologic Surgery - left oophorectomy, Hx Hysterectomy - Immunizations Hx Diphtheria, Pertussis, Tetanus Vaccination: Yes Hx Pneumococcal Vaccination: 03/20/13 Review of Systems - Review of Systems Constitutional: Weakness EENT: No symptoms reported Cardiovascular: Lightheaded Respiratory: No symptoms reported Gastrointestinal: Abdominal pain, Nausea Genitourinary: Dysuria Female Genitourinary: No symptoms reported Musculoskeletal: No symptoms reported Skin: No symptoms reported Hematologic/Lymphatic: No symptoms reported Neurological/Psychological: No symptoms reported Physical Exam - Vital signs Vitals: Temp Resp BP Pulse Ox 98.2 F 14 154/98 H 100 11/09/17 13:44 11/09/17 13:44 11/09/17 13:44 11/09/17 13:44 Interpretation: Normal - Notes Notes: PHYSICAL EXAMINATION: GENERAL: Well-appearing, well-nourished and in no acute distress. HEAD: Atraumatic, normocephalic. EYES: Pupils equal round and reactive to light, extraocular movements intact, conjunctiva are normal. ENT: Nares patent, oropharynx clear without exudates. Moist mucous membranes. NECK: Normal range of motion, supple without lymphadenopathy LUNGS: Breath sounds clear to auscultation bilaterally and equal. No wheezes rales or rhonchi. HEART: Regular rate and rhythm without murmurs ABDOMEN: Soft, nontender, nondistended abdomen. No guarding, no rebound. No masses appreciated. Female : deferred Musculoskeletal: Normal range of motion, no pitting or edema. No cyanosis. NEUROLOGICAL: Cranial nerves grossly intact. Normal speech, normal gait. Normal sensory, motor exams PSYCH: Normal mood, normal affect. SKIN: Warm, Dry, normal turgor, no rashes or lesions noted. Course - Re-evaluation Re-evalutation: 11/09/17 16:48 Labs and imaging obtained and are within normal limits. Orthostatics are normal. On reevaluation, patient states that her symptoms have resolved. She received normal saline and zofran in the ED. Patient feels comfortable with discharge home and following up outpatient. 11/09/17 16:48 - Vital Signs Vital signs: Temp Pulse Resp BP Pulse Ox 98.2 F 57 L 18 158/102 H 97 11/09/17 13:44 11/09/17 14:00 11/09/17 16:01 11/09/17 16:01 11/09/17 16:01 - Laboratory Result Diagrams: 11/09/17 13:43 11/09/17 13:43 Laboratory results interpreted by me: 11/09/17 11/09/17 11/09/17 13:43 13:43 14:18 Lymphocytes % 45.2 H Carbon Dioxide 32 H Total Protein 8.4 H Urine Urobilinogen 2.0 H - EKG Interpretation by Me Additional EKG results interpreted by me: 11/09/17 14:14 EKG: Ventricular rate 53, NM interval 232, castration 86, QTc 425, sinus rhythm , first-degree AV block, left axis deviation, no ischemic changes. EKG similar to 08/03/16 Discharge - Discharge Clinical Impression: Lightheaded Condition: Stable Instructions: Dizziness ([facility]) Prescriptions: Ondansetron [Zofran Odt 4 mg Tablet] 1 tab PO Q4H PRN #15 tab.rapdis PRN Reason: For Nausea/Vomiting Referrals: SANDEEP VASQUEZ MD [ACTIVE STAFF] - Follow up as needed JENNIFFER SRIVASTAVA MD [COMMUNITY BASED STAFF] - Follow up as needed
[2017-11-09] MEDS ORDERED: NORMAL SALINE 500 ML IV ONE (14:22)
[2017-11-09] MEDS ORDERED: ONDANSETRON 4 MG TAB.RAPDIS PO ONE (14:22)
[2017-11-09 14:23] LABS: CREATINE KINASE MB 0.59 ng/mL (<4.55)
[2017-11-09 14:25] LABS: TROPONIN I < 0.012 ng/mL
[2017-11-09 14:35] LABS: APPEARANCE,URINE SLIGHTLY-CLOUDY; BILIRUBIN,URINE NEGATIVE (NEGATIVE); COLOR,URINE YELLOW; GLUCOSE, URINE NEGATIVE (NEGATIVE); KETONES,URINE NEGATIVE (NEGATIVE); LEUKOCYTE ESTERASE,URINE NEGATIVE (NEGATIVE); NITRITE,URINE NEGATIVE (NEGATIVE); PROTEIN,URINE NEGATIVE (NEGATIVE); URINE SPECIFIC GRAVITY 1.014
--- NOTE | 2017-11-09 14:56 | RADIOLOGY REPORT (SQ) ---
EXAM DESCRIPTION: CHEST SINGLE VIEW COMPLETED DATE/TIME: 11/09/2017 2:44 pm REASON FOR STUDY: dizziness COMPARISON: 03/19/2013 EXAM PARAMETERS: NUMBER OF VIEWS: One view. TECHNIQUE: Single frontal radiographic view of the chest acquired. RADIATION DOSE: NA LIMITATIONS: None. FINDINGS: LUNGS AND PLEURA: No acute opacities, masses or pneumothorax. No pleural effusion. MEDIASTINUM AND HILAR STRUCTURES: Stable. HEART AND VASCULAR STRUCTURES: Heart normal in size. Normal vasculature. BONES: No acute findings. HARDWARE: None in the chest. OTHER: No other significant finding. IMPRESSION: NO ACUTE RADIOGRAPHIC FINDING IN THE CHEST. TECHNICAL DOCUMENTATION: JOB ID: [id number] [place]-72 2010 [employer]- All Rights Reserved Reading location - IP/workstation name: [email or web address]
--- NOTE | 2017-11-09 15:46 | RADIOLOGY REPORT (SQ) ---
EXAM DESCRIPTION: CT ABD/PELVIS WITH IV ONLY COMPLETED DATE/TIME: 11/09/2017 3:28 pm REASON FOR STUDY: lower abdominal pain, dizzy COMPARISON: 09/04/2016 TECHNIQUE: CT scan of the abdomen and pelvis performed using helical scanning technique with dynamic intravenous contrast injection. No oral contrast. Images reviewed with lung, soft tissue, and bone windows. Reconstructed coronal and sagittal MPR images reviewed. Delayed images for evaluation of the urinary system also acquired. All images stored on PACS. All CT scanners at this facility use dose modulation, iterative reconstruction, and/or weight based d osing when appropriate to reduce radiation dose to as low as reasonably achievable (ALARA). [facility]: Dose Right [facility]: CareDose [facility]: Dose Right [facility]: Teradose 4D [facility]: RayV CONTRAST TYPE AND DOSE: contrast/concentration: Isovue 370.00 mg/ml; Total Contrast Delivered: 79.0 ml; Total Saline Delivered: 68.0 ml RENAL FUNCTION: BUN 13; creatinine 0.86 RADIATION DOSE: CT Rad equipment meets quality standard of care and radiation dose reduction techniq ues were employed. CTDIvol: 6.5 - 8.9 mGy. DLP: 729 mGy-cm.. LIMITATIONS: None. FINDINGS: LOWER CHEST: No significant findings. No nodules or infiltrates. LIVER: Normal size. No masses. No dilated ducts. Hepatic steatosis. SPLEEN: Normal size. No focal lesions. PANCREAS: No masses. No significant calcifications. No adjacent inflammation or peripancreatic fluid collections. Pancreatic duct not dilated. GALLBLADDER: No identified stones by CT criteria. No inflammatory changes to suggest cholecystitis. ADRENAL GLANDS: No significant masses or asymmetry. RIGHT KIDNEY AND URETER: No solid masses. No significant calcifications. No hydronephrosis or hyd roureter. LEFT KIDNEY AND URETER: No solid masses. No significant calcifications. No hydronephrosis or hydr oureter. AORTA AND VESSELS: Focal ectasia at the bifurcation of the left iliac artery. The abdominal vasculat ure otherwise demonstrates scant calcified and noncalcified atherosclerotic plaque. No visceral sten osis. No dissection. RETROPERITONEUM: No retroperitoneal adenopathy, hemorrhage or masses. BOWEL AND PERITONEAL CAVITY: No masses or inflammatory changes. No free fluid or peritoneal masses. APPENDIX: Normal. PELVIS: Note is again made of a calcified uterine fibroid. No free peritoneal fluid. ABDOMINAL WALL: No masses. No hernias. BONES: Mild degenerative changes, most significantly at the L3/4 level which demonstrates grade 1 ant erolisthesis on the basis of facet arthropathy. OTHER: No other significant finding. IMPRESSION: NO SIGNIFICANT OR ACUTE FINDING IN THE ABDOMEN OR PELVIS ON CT SCAN WITH IV CONTRAST. TECHNICAL DOCUMENTATION: JOB ID: [id number] Quality ID # [id number]: Final reports with documentation of one or more dose reduction techniques (e.g., Au tomated exposure control, adjustment of the mA and/or kV according to patient size, use of iterative reconstruction technique) 2010 [employer]- All Rights Reserved Reading location - IP/workstation name: [email or web address]
[2017-11-09 17:10] VITALS: BP 128/78
--- NOTE | 2017-11-09 21:38 | EKG REPORT ---
SEVERITY:- ABNORMAL ECG - SINUS RHYTHM FIRST DEGREE AV BLOCK LEFT AXIS DEVIATION NONSPECIFIC T ABNORMALITIES, ANTERIOR LEADS : Confirmed by: Frieda Sears MD 09-Nov-2017 21:38:05
== END 2017-11-09 17:16 | disposition home or self-care (01) ==
LOC: ER 13:37
DX: R42 Dizziness and giddiness (principal); I44.0 Atrioventricular block, first degree; R53.1 Weakness; R11.0 Nausea; R10.30 Lower abdominal pain, unspecified; R30.0 Dysuria; I10 Essential (primary) hypertension; Z87.19 Personal history of other diseases of the digestive system
CPT/HCPCS: 93005; 99285; 96360; 36415; 82553; 82550; 85025; 80053; 81001; 84484; 71045; 74177; 93010; S0119; J7040

== ENCOUNTER 2018-05-22 17:24 | Emergency (ER) | payer MEDICARE, MEDICAID ==
--- NOTE | 2018-05-22 18:39 | ER Document Report ---
ED Medical Screen (RME) - General Chief Complaint: Flu Symptoms Stated Complaint: SHORTNESS OF BREATH Time Seen by Provider: 05/22/18 18:26 Primary Care Provider: GIULIANO CISNEROS MD [Primary Care Provider] - Follow up as needed Mode of Arrival: Ambulatory Information source: Patient Notes: This is a 63-year-old female with a history of hypertension who presents to the emergency room with not feeling well for the past 3 days: Patient states she has been short of breath, increased week and dizzy. She has had a number of sick contacts at home. She states she has had muscle aches but is not sure whether she has had any fever. She denies any chest pain. TRAVEL OUTSIDE OF THE [place] IN LAST 30 DAYS: No - Related Data Allergies/Adverse Reactions: No Known Allergies Allergy (Verified 10/12/16 12:43) Past Medical History - Social History Frequency of alcohol use: None Drug Abuse: None - Past Medical History Cardiac Medical History: Reports: Hx Hypertension Neurological Medical History: Denies: Hx Seizures Renal/ Medical History: Denies: Hx Peritoneal Dialysis GI Medical History: Reports: Hx Cirrhosis, Hx Gastroesophageal Reflux Disease, Hx Hepatitis - C Infectious Medical History: Reports: Hx Hepatitis - C Past Surgical History: Reports: Hx Section, Hx Gynecologic Surgery - left oophorectomy, Hx Hysterectomy - Immunizations Hx Diphtheria, Pertussis, Tetanus Vaccination: Yes Physical Exam - Vital signs Vitals: Temp Pulse Resp BP Pulse Ox 98.1 F 60 17 139/78 H 99 05/22/18 17:39 05/22/18 17:39 05/22/18 17:39 05/22/18 17:39 05/22/18 17:39 Course - Vital Signs Vital signs: Temp Pulse Resp BP Pulse Ox 98.1 F 60 17 139/78 H 99 05/22/18 17:39 05/22/18 17:39 05/22/18 17:39 05/22/18 17:39 05/22/18 17:39 Doctor's Discharge - Discharge Referrals: GIULIANO CISNEROS MD [Primary Care Provider] - Follow up as needed
--- NOTE | 2018-05-22 19:11 | RADIOLOGY REPORT (SQ) ---
EXAM DESCRIPTION: CHEST 2 VIEWS COMPLETED DATE/TIME: 05/22/2018 6:55 pm REASON FOR STUDY: sob COMPARISON: 03/19/2013 EXAM PARAMETERS: NUMBER OF VIEWS: two views TECHNIQUE: Digital Frontal and Lateral radiographic views of the chest acquired. RADIATION DOSE: NA LIMITATIONS: none FINDINGS: LUNGS AND PLEURA: No opacities, masses or pneumothorax. No pleural effusion. MEDIASTINUM AND HILAR STRUCTURES: No masses or contour abnormalities. HEART AND VASCULAR STRUCTURES: Heart normal size. No evidence for failure. BONES: No acute findings. HARDWARE: None in the chest. OTHER: No other significant finding. IMPRESSION: NO ACUTE RADIOGRAPHIC FINDING IN THE CHEST. TECHNICAL DOCUMENTATION: JOB ID: [id number] [employer]- All Rights Reserved Reading location - IP/workstation name: [email or web address]
[2018-05-22 19:38] LABS: ABSOLUTE EOSINOPHILS # (AUTO) 0.1 10^3/uL (0.0-0.6); ABSOLUTE NEUT (AUTO) 2.2 10^3/uL (1.7-8.2); BASOPHILS % (AUTO) 0.7 % (0-2); LYMPHOCYTES % (AUTO) 48.7 % (13-45); TOTAL CELLS COUNTED % (AUTO) 100 %
[2018-05-22 19:42] LABS: APPEARANCE,URINE CLEAR; BILIRUBIN,URINE NEGATIVE (NEGATIVE); COLOR,URINE YELLOW; GLUCOSE, URINE NEGATIVE (NEGATIVE); KETONES,URINE NEGATIVE (NEGATIVE); LEUKOCYTE ESTERASE,URINE NEGATIVE (NEGATIVE); NITRITE,URINE NEGATIVE (NEGATIVE); PROTEIN,URINE NEGATIVE (NEGATIVE); URINE SPECIFIC GRAVITY 1.015; UROBILINOGEN,URINE NEGATIVE mg/dL (<2.0)
[2018-05-22 19:52] LABS: ABSOLUTE LYMPHOCYTES (AUTO) 2.5 10^3/uL (0.5-4.7); ABSOLUTE MONOCYTES (AUTO) 0.3 10^3/uL (0.1-1.4); EOSINOPHILS % (AUTO) 1.1 % (0-6); HEMATOCRIT 37.1 % (36.0-47.0); HEMOGLOBIN 12.6 g/dL (12.0-15.5); MEAN CORPUSCULAR HEMOGLOBIN 32.3 pg (27.0-33.4); MEAN CORPUSCULAR HGB CONC 33.9 g/dL (32.0-36.0); MEAN CORPUSCULAR VOLUME 95 fl (80-97); MONOCYTES % (AUTO) 6.8 % (3-13); PLATELET COUNT 141 10^3/uL (150-450); RED BLOOD COUNT 3.89 10^6/uL (3.72-5.28); RED CELL DISTRIBUTION WIDTH 12.8 % (11.5-14.0); SEGMENTED NEUTROPHILS % (AUTO) 42.7 % (42-78); WHITE BLOOD COUNT 5.1 10^3/uL (4.0-10.5)
[2018-05-22 19:58] LABS: ALANINE AMINOTRANSFERASE 23 U/L (9-52); ALBUMIN 4.4 g/dL (3.5-5.0); ALKALINE PHOSPHATASE 68 U/L (38-126); ANION GAP 6 (5-19); ASPARTATE AMINO TRANSFERASE 28 U/L (14-36); BILIRUBIN,DIRECT 0.1 mg/dL (0.0-0.4); BILIRUBIN,TOTAL 0.4 mg/dL (0.2-1.3); BLOOD UREA NITROGEN 16 mg/dL (7-20); CALCIUM 9.8 mg/dL (8.4-10.2); CARBON DIOXIDE 35 mmol/L (22-30); CHLORIDE 99 mmol/L (98-107); GLUCOSE 105 mg/dL (75-110); POTASSIUM 3.7 mmol/L (3.6-5.0); TOTAL PROTEIN 8.2 g/dL (6.3-8.2)
[2018-05-22] MEDS ORDERED: KETOROLAC TROMETHAMINE INJ/PF 30 MG/1 ML SDV IV ONE (21:06)
--- NOTE | 2018-05-22 21:06 | EKG REPORT ---
SEVERITY:- ABNORMAL ECG - SINUS RHYTHM FIRST DEGREE AV BLOCK LEFT AXIS DEVIATION : Confirmed by: Frieda Sears MD 22-May-2018 21:06:09
--- NOTE | 2018-05-22 21:13 | ER Document Report ---
HPI - HPI Patient complains to provider of: Body aches Time Seen by Provider: 05/22/18 18:26 Pain Level: 3 Context: Patient is a 63-year-old female presents to the emergency department for generalized body aches, chills, cough, congestion, diarrhea for the last 3 days. Patient is denying any vomiting, she is denying any dysuria, chest pain. Patient states at times she does feel short of breath when she coughs a lot. Patient has taken no ekhy-rvc-dysoghy medications for these symptoms. Patient states "everybody at home is also sick." Past medical history: Hypertension Medications: Atenolol, HCTZ Allergies: None - REPRODUCTIVE Reproductive: DENIES: : - DERM Skin Color: Normal Past Medical History - General Information source: Patient - Social History Smoking Status: Former Smoker Frequency of alcohol use: None Drug Abuse: None Family History: Reviewed & Not Pertinent Patient has suicidal ideation: No Patient has homicidal ideation: No - Past Medical History Cardiac Medical History: Reports: Hx Hypertension Neurological Medical History: Denies: Hx Seizures Renal/ Medical History: Denies: Hx Peritoneal Dialysis GI Medical History: Reports: Hx Cirrhosis, Hx Gastroesophageal Reflux Disease, Hx Hepatitis - C Infectious Medical History: Reports: Hx Hepatitis - C Past Surgical History: Reports: Hx Section, Hx Gynecologic Surgery - left oophorectomy, Hx Hysterectomy - Immunizations Hx Diphtheria, Pertussis, Tetanus Vaccination: Yes Hx Pneumococcal Vaccination: 03/20/13 Vertical Provider Document - CONSTITUTIONAL Agree With Documented VS: Yes Notes: GENERAL: Alert, interacts well. No acute distress. HEAD: Normocephalic, atraumatic. No frontal or maxillary sinus tenderness noted EYES: Pupils equal, round, and reactive to light. Extraocular movements intact. ENT: Oral mucosa moist, tongue midline. Nares patent, TM's intact nonerythematous, nonbulging bilaterally. Pharynx within normal limits no palatal petechiae or exudate noted, NECK: Full range of motion. Supple. Trachea midline. No lymphadenopathy appreciated LUNGS: Clear to auscultation bilaterally, no wheezes, rales, or rhonchi. No respiratory distress. HEART: Regular rate and rhythm. No murmur ABDOMEN: Soft, non-tender. Non-distended. Bowel sounds present in all 4 quadrants. EXTREMITIES: Moves all 4 extremities spontaneously. No edema, normal radial and dorsalis pedis pulses bilaterally. No cyanosis. BACK: no cervical, thoracic, lumbar midline tenderness. No saddle anesthesia, normal distal neurovascular exam. NEUROLOGICAL: Alert and oriented x3. Normal speech. cranial nerves II through XII grossly intact PSYCH: Normal affect, normal mood. SKIN: Warm, dry, normal turgor. No rashes or lesions noted. - INFECTION CONTROL TRAVEL OUTSIDE OF THE [place] IN LAST 30 DAYS: No Course - Re-evaluation Re-evalutation: 05/22/18 21:10 Patient's labs show no signs of leukocytosis, no signs of anemia, no signs of electrolyte abnormalities, no signs of urinary tract infection. She appears to be well-hydrated with moist mucous membranes. Patient's specific gravity is 1.015. Patient's chest x-ray was negative for pneumonia, pneumothorax, rib fracture. Patient's EKG which was ordered by E provider shows a rate of 60, QTc 456, no ST segment elevations or changes noted. Upon my examination patient's only complaint is a generalized headache. Discussed use of clmr-pip-vixhluy Tylenol Motrin and nasal sprays for nasal congestion. Patient states "the cough is not that bad" and is refusing Tessalon Perles at this time. Patient is afebrile, non-tachycardic, stable for discharge. - Vital Signs Vital signs: Temp Pulse Resp BP Pulse Ox 98.1 F 60 17 139/78 H 99 05/22/18 17:39 05/22/18 17:39 05/22/18 17:39 05/22/18 17:39 05/22/18 17:39 - Laboratory Result Diagrams: 05/22/18 19:16 05/22/18 19:16 Laboratory results interpreted by me: 05/22/18 05/22/18 19:16 19:16 Plt Count 141 L Lymphocytes % 48.7 H Carbon Dioxide 35 H Discharge - Discharge Clinical Impression: Flu-like symptoms Condition: Stable Disposition: HOME, SELF-CARE Instructions: Upper Respiratory Illness ([facility]), Viral Syndrome ([facility]) Additional Instructions: As we discussed you have been seen and treated in the emergency department for a flu like illness. This illness is caused by a virus. Viruses do not respond to antibiotics. You should take nbbj-dgb-zutwbst Tylenol and Motrin for your generalized body aches and fever. Please stay well-hydrated and follow-up with your primary care provider. All of your labs today revealed no signs of abnormalities. Please return to the emergency room for any other concerning symptoms. Prescriptions: Mometasone Furoate [Nasonex] 1 spray NS Q12 #1 spray.pump Referrals: GIULIANO CISNEROS MD [Primary Care Provider] - Follow up as needed
[2018-05-22 21:28] VITALS: BP 150/84
== END 2018-05-22 21:30 | disposition home or self-care (01) ==
LOC: ER 17:24
DX: M79.10 Myalgia, unspecified site (principal); R05 Cough; R19.7 Diarrhea, unspecified; R06.02 Shortness of breath; I10 Essential (primary) hypertension; Z86.19 Personal history of other infectious and parasitic diseases; Z90.710 Acquired absence of both cervix and uterus
CPT/HCPCS: 93005; 85025; 99284; 96374; 36415; 80053; 81001; 71046; 93010; J1885

== ENCOUNTER → 2018-07-01 | Outpatient (CLI) | payer MEDICARE, MEDICAID ==
--- NOTE | 2018-07-01 08:39 | RADIOLOGY REPORT (SQ) ---
EXAM DESCRIPTION: U/S ABDOMEN LIMITED W/O DOP COMPLETED DATE/TIME: 07/01/2018 8:23 am REASON FOR STUDY: CIRRHOSIS, NON-ALCOHOL (K74.69) K74.69 OTHER CIRRHOSIS OF LIVER COMPARISON: 06/25/2017 TECHNIQUE: Dynamic and static grayscale images acquired of the abdomen and recorded on PACS. Additio nal selected color Doppler and spectral images recorded. LIMITATIONS: None. FINDINGS: PANCREAS: No masses. Visualized pancreatic duct normal caliber. LIVER: Normal size. 15.2 cm. Normal echotexture. No masses. LIVER VASCULATURE: Normal directional flow of the main portal vein and hepatic veins. GALLBLADDER: No stones. Normal wall thickness. No pericholecystic fluid. ULTRASOUND-DETECTED DICKSON'S SIGN: Negative. INTRAHEPATIC DUCTS AND COMMON DUCT: CBD and intrahepatic ducts normal caliber. No filling defects. INFERIOR VENA CAVA: Normal flow. AORTA: No aneurysm. RIGHT KIDNEY: Normal size. Normal echogenicity. No solid or suspicious masses. No hydronephrosis. No calcifications. PERITONEAL AND RIGHT PLEURAL SPACE: No ascites or effusions. OTHER: No other significant findings. IMPRESSION: NORMAL RIGHT UPPER QUADRANT ULTRASOUND. Liver size and echotexture normal despite the h istory of nonalcoholic cirrhosis. TECHNICAL DOCUMENTATION: JOB ID: [id number] [employer]- All Rights Reserved Reading location - IP/workstation name: [email or web address]
== END ==
LOC: RAD 07:46
PROVIDERS: ATTEND Internal Medicine Gastroenterology
DX: K74.69 Other cirrhosis of liver (principal)
CPT/HCPCS: 76705

== ENCOUNTER 2019-01-11 15:17 | Emergency (ER) | payer MEDICARE, MEDICAID ==
[2019-01-11] MEDS ORDERED: ASPIRIN 81 MG TABLET, CHEWABLE PO ONE (16:13)
[2019-01-11] MEDS ORDERED: HYDROCHLOROTHIAZIDE 12.5 MG TABLET PO ONE (16:15)
[2019-01-11] MEDS ORDERED: NADOLOL 40 MG TABLET PO ONE (16:15)
[2019-01-11] MEDS ORDERED: FENTANYL CITRATE INJ/PF 100 MCG/2 ML AMPUL IV ONE (16:16)
--- NOTE | 2019-01-11 16:17 | ER Document Report ---
ED Cardiac - General Chief Complaint: Chest Pain Stated Complaint: NECK PAIN Time Seen by Provider: 01/11/19 15:57 Primary Care Provider: GIULIANO CISNEROS MD [Primary Care Provider] - Follow up as needed Mode of Arrival: Ambulatory Information source: Patient Notes: Patient states that she has had upper back and lateral neck pain for the past 2 to 3 days. Patient states around yesterday evening 9 PM she developed upper chest pain that she describes as a pressure. Patient points to the clavicular area. Patient does report that she has been sleeping on air mattress for the past month and feels that this is aggravating her pain symptoms. Patient does report mild cough with congestion and feeling lightheaded. Patient denies any nausea vomiting or fever. TRAVEL OUTSIDE OF THE [place] IN LAST 30 DAYS: No - HPI Patient complains to provider of: Other - chest pressure Was the onset of pain: Gradual Chest pain location: Back, Other - Supraclavicular Quality of pain: Pressure Pain level currently: 3 Chest pain precipitating factors: At Rest Cardiac risk factors: Hypertension. denies: Smoker Associated symptoms: Back pain, Neck pain. denies: Abdominal pain, Lightheaded, Nausea/vomiting, Palpitations, Syncope Relieved by: Nothing Similar symptoms previously: No Recently seen / treated by doctor: No - Related Data Allergies/Adverse Reactions: No Known Allergies Allergy (Verified 05/22/18 19:25) Past Medical History - General Information source: Patient - Social History Smoking Status: Never Smoker Frequency of alcohol use: None Drug Abuse: None Lives with: Family Family History: Reviewed & Not Pertinent Patient has suicidal ideation: No Patient has homicidal ideation: No - Past Medical History Cardiac Medical History: Reports: Hx Hypertension Neurological Medical History: Denies: Hx Seizures Renal/ Medical History: Denies: Hx Peritoneal Dialysis GI Medical History: Reports: Hx Cirrhosis, Hx Gastroesophageal Reflux Disease, Hx Hepatitis - C Infectious Medical History: Reports: Hx Hepatitis - C Past Surgical History: Reports: Hx Section, Hx Gynecologic Surgery - left oophorectomy, Hx Hysterectomy - Immunizations Hx Diphtheria, Pertussis, Tetanus Vaccination: Yes Hx Pneumococcal Vaccination: 03/20/13 Review of Systems - Review of Systems Constitutional: No symptoms reported. denies: Fever, Recent illness EENT: No symptoms reported Cardiovascular: Chest pain, Lightheaded Respiratory: Cough. denies: Short of breath Gastrointestinal: No symptoms reported. denies: Abdominal pain, Nausea, Vomiting Genitourinary: No symptoms reported Musculoskeletal: Back pain - Upper back pain, Neck pain - Lateral neck tenderness Skin: No symptoms reported Hematologic/Lymphatic: No symptoms reported Neurological/Psychological: No symptoms reported. denies: Headaches Physical Exam - Vital signs Vitals: Temp Resp BP Pulse Ox 98.5 F 17 150/104 H 97 01/11/19 16:01 01/11/19 16:01 01/11/19 16:01 01/11/19 16:01 - General General appearance: Appears well, Alert In distress: None - HEENT Head: Normocephalic, Atraumatic Eyes: Normal Conjunctiva: Normal Nasal: Normal Mouth/Lips: Normal Mucous membranes: Normal Neck: Normal, Supple. No: Lymphadenopathy, Meningismus - Respiratory Respiratory status: No respiratory distress Chest status: Tender Breath sounds: Normal Chest palpation: Normal - Cardiovascular Rhythm: Regular Heart sounds: S1 appreciated, S2 appreciated Murmur: No - Abdominal Inspection: Normal Distension: No distension Bowel sounds: Normal Tenderness: Nontender - Back Back: Tender - Bilateral trapezius muscle tenderness with spasm. No: Deformity/step-off, CVA tenderness, Vertebra tenderness - Extremities General upper extremity: Normal inspection, Nontender, Normal strength General lower extremity: Normal inspection, Nontender, Normal strength - Neurological Neuro grossly intact: Yes Cognition: Normal Orientation: AAOx4 Angie Coma Scale Eye Opening: Spontaneous Angie Coma Scale Verbal: Oriented Angie Coma Scale Motor: Obeys Commands Angie Coma Scale Total: 15 - Psychological Associated symptoms: Normal affect, Normal mood - Skin Skin Temperature: Warm Skin Moisture: Dry Skin Color: Normal Course - Re-evaluation Re-evalutation: 01/11/19 17:30 Patient reports pain symptoms improved after receiving pain medication. Patient's respirations even unlabored. Patient's vital signs stable. Awaiting delta troponin at this time. Patient presents with likely musculoskeletal neck and upper chest pain due to sleeping on an air mattress. 01/11/19 20:02 No change in patient's delta troponin this time. No dynamic EKG changes. Patient is symptom-free at this time. Will treat for musculoskeletal pain and encourage outpatient follow-up with her primary doctor. 01/11/19 20:02 The patient has atypical chest pain as the patient's chest pain is not suggestive of pulmonary embolus, cardiac ischemia, aortic dissection, or other serious etiology. Given the extremely low risk of these diagnoses for the test in evaluation for these possibilities does not appear to be indicated at this time. Patient has been instructed to return if the symptoms worsen or change in any way. - Vital Signs Vital signs: Temp Pulse Resp BP Pulse Ox 98.5 F 16 143/97 H 96 01/11/19 16:01 01/11/19 18:01 01/11/19 18:01 01/11/19 18:01 - Laboratory Result Diagrams: 01/11/19 15:30 01/11/19 15:30 Laboratory results interpreted by me: 01/11/19 01/11/19 15:30 16:29 Potassium 3.5 L Chloride 96 L Carbon Dioxide 33 H Ammonia < 8.7 L Total Protein 8.5 H Labs- Entire Visit 01/11/19 01/11/19 01/11/19 15:30 15:30 15:30 WBC 6.7 RBC 3.94 Hgb 12.6 Hct 37.4 MCV 95 MCH 32.1 MCHC 33.8 RDW 13.0 Plt Count 191 Lymph % (Auto) 38.0 Garrard % (Auto) 8.7 Eos % (Auto) 0.6 Baso % (Auto) 0.7 Absolute Neuts (auto) 3.5 Absolute Lymphs (auto) 2.6 Absolute Monos (auto) 0.6 Absolute Eos (auto) 0.0 Absolute Basos (auto) 0.0 Seg Neutrophils % 52.0 Sodium 138.1 Potassium 3.5 L Chloride 96 L Carbon Dioxide 33 H Anion Gap 9 BUN 13 Creatinine 0.75 Est GFR ( Amer) > 60 Est GFR (MDRD) Non-Af > 60 Glucose 101 Calcium 10.0 Total Bilirubin 1.1 Direct Bilirubin 0.3 Neonat Total Bilirubin Not Reportable Neonat Direct Bilirubin Not Reportable Neonat Indirect Bili Not Reportable AST 23 ALT 8 Alkaline Phosphatase 76 Ammonia Troponin I < 0.012 Total Protein 8.5 H Albumin 4.3 01/11/19 01/11/19 16:29 18:55 WBC RBC Hgb Hct MCV MCH MCHC RDW Plt Count Lymph % (Auto) Garrard % (Auto) Eos % (Auto) Baso % (Auto) Absolute Neuts (auto) Absolute Lymphs (auto) Absolute Monos (auto) Absolute Eos (auto) Absolute Basos (auto) Seg Neutrophils % Sodium Potassium Chloride Carbon Dioxide Anion Gap BUN Creatinine Est GFR ( Amer) Est GFR (MDRD) Non-Af Glucose Calcium Total Bilirubin Direct Bilirubin Neonat Total Bilirubin Neonat Direct Bilirubin Neonat Indirect Bili AST ALT Alkaline Phosphatase Ammonia < 8.7 L Troponin I < 0.012 Total Protein Albumin - Diagnostic Test Radiology reviewed: Reports reviewed - EKG Interpretation by Me EKG shows normal: Sinus rhythm When compared to previous EKG there are: No significant change Additional EKG results interpreted by me: 01/11/19 19:[address] elevation, QTc 435 Discharge - Discharge Clinical Impression: Cervical strain, acute Qualifiers: Encounter type: initial encounter Qualified Code(s): S16.1XXA - Strain of muscle, fascia and tendon at neck level, initial encounter Upper back strain Qualifiers: Encounter type: initial encounter Qualified Code(s): S29.012A - Strain of muscle and tendon of back wall of thorax, initial encounter Chest pain Qualifiers: Chest pain type: unspecified Qualified Code(s): R07.9 - Chest pain, unspecified Condition: Stable Disposition: HOME, SELF-CARE Instructions: Chest Pain of Unclear Cause ([facility]), Muscle Relaxers ([facility]), Neck Injury (Cervical Strain) ([facility]), Upper Back Strain ([facility]) Additional Instructions: Return immediately for any new or worsening symptoms Followup with your primary care provider, call tomorrow to make a followup appointment Prescriptions: Lidocaine [Lidoderm 5% (700 mg) Transdermal Patch] 1 patch TP DAILY PRN #10 adh..patch PRN Reason: Oxycodone HCl [Oxy-Ir 5 mg Tablet] 5 mg PO Q8 PRN #15 tab PRN Reason: Referrals: GIULIANO CISNEROS MD [Primary Care Provider] - Follow up tomorrow
[2019-01-11 16:28] LABS: ABSOLUTE LYMPHOCYTES (AUTO) 2.6 10^3/uL (0.5-4.7); ABSOLUTE MONOCYTES (AUTO) 0.6 10^3/uL (0.1-1.4); ABSOLUTE NEUT (AUTO) 3.5 10^3/uL (1.7-8.2); BASOPHILS % (AUTO) 0.7 % (0-2); EOSINOPHILS % (AUTO) 0.6 % (0-6); HEMATOCRIT 37.4 % (36.0-47.0); HEMOGLOBIN 12.6 g/dL (12.0-15.5); MEAN CORPUSCULAR HEMOGLOBIN 32.1 pg (27.0-33.4); MEAN CORPUSCULAR HGB CONC 33.8 g/dL (32.0-36.0); MEAN CORPUSCULAR VOLUME 95 fl (80-97); MONOCYTES % (AUTO) 8.7 % (3-13); PLATELET COUNT 191 10^3/uL (150-450); RED BLOOD COUNT 3.94 10^6/uL (3.72-5.28); TOTAL CELLS COUNTED % (AUTO) 100 %; WHITE BLOOD COUNT 6.7 10^3/uL (4.0-10.5)
[2019-01-11 16:32] LABS: ALBUMIN 4.3 g/dL (3.5-5.0); ALKALINE PHOSPHATASE 76 U/L (38-126); ANION GAP 9 (5-19); ASPARTATE AMINO TRANSFERASE 23 U/L (14-36); BILIRUBIN,DIRECT 0.3 mg/dL (0.0-0.4); BILIRUBIN,TOTAL 1.1 mg/dL (0.2-1.3); BLOOD UREA NITROGEN 13 mg/dL (7-20); CARBON DIOXIDE 33 mmol/L (22-30); CHLORIDE 96 mmol/L (98-107); GLUCOSE 101 mg/dL (75-110); POTASSIUM 3.5 mmol/L (3.6-5.0); TOTAL PROTEIN 8.5 g/dL (6.3-8.2)
[2019-01-11] MEDS ORDERED: NADOLOL 40 MG TABLET ONE (17:09)
[2019-01-11] MEDS ORDERED: POTASSIUM CHLORIDE 10 MEQ CAPSULE.ER PO ONE (17:09)
--- NOTE | 2019-01-11 17:34 | RADIOLOGY REPORT (SQ) ---
EXAM DESCRIPTION: CHEST 2 VIEWS COMPLETED DATE/TIME: 01/11/2019 5:23 pm REASON FOR STUDY: cp COMPARISON: 05/22/2018 TECHNIQUE: Frontal and lateral radiographic views of the chest acquired. NUMBER OF VIEWS: Two view. LIMITATIONS: None. FINDINGS: LUNGS AND PLEURA: No pneumothorax. No consolidation or pleural effusion. MEDIASTINUM AND HILAR STRUCTURES: Stable. HEART AND VASCULAR STRUCTURES: Stable. BONES: No acute findings. HARDWARE: None in the chest. OTHER: No other significant finding. IMPRESSION: NO ACUTE FINDINGS. TECHNICAL DOCUMENTATION: JOB ID: [id number] [place]-72 2010 [employer]- All Rights Reserved Reading location - IP/workstation name: [email or web address]
--- NOTE | 2019-01-11 19:26 | EKG REPORT ---
SEVERITY:- ABNORMAL ECG - SINUS RHYTHM BORDERLINE LEFT AXIS DEVIATION NONSPECIFIC T ABNORMALITIES, INFERIOR LEADS : Confirmed by: Frieda Sears MD 11-Jan-2019 19:25:24
[2019-01-11 20:29] VITALS: BP 164/95
== END 2019-01-11 20:29 | disposition home or self-care (01) ==
LOC: ER 15:17
DX: S16.1XXA Strain of muscle, fascia and tendon at neck level, initial encounter (principal); S29.012A Strain of muscle and tendon of back wall of thorax, initial encounter; R07.9 Chest pain, unspecified; M54.2 Cervicalgia; M54.6 Pain in thoracic spine; R05 Cough; R42 Dizziness and giddiness; X58.XXXA Exposure to other specified factors, initial encounter; I10 Essential (primary) hypertension
CPT/HCPCS: 93005; 36415; 82140; 85025; 80053; 84484; 71046; 93010; A9270 ×4; J3010; 96374; 99285; J3490

== ENCOUNTER → 2019-01-13 | Outpatient (CLI) | payer MEDICARE, MEDICAID ==
--- NOTE | 2019-01-14 17:13 | WOMENS IMAGING REPORT ---
EXAM DESCRIPTION: 3D SCREENING MAMMO BILAT COMPLETED DATE/TIME: 01/13/2019 2:18 pm REASON FOR STUDY: Z12.31 ENCOUNTER FOR SCREENING MAMMOGRAM FOR MALIGNANT NEOPLASM OF BREAST Z12.31 ENCNTR SCREEN MAMMOGRAM FOR MALIGNANT NEOPLASM OF JOSE COMPARISON: Multiple since 2010 EXAM PARAMETERS: Views: Standard craniocaudal and mediolateral oblique views of each breast recorded using digital acquisition and breast tomosynthesis. Read with the assistance of CAD. .[facility] - [employer] Service Representative Version 9.2 LIMITATIONS: None. FINDINGS: No suspicious masses, suspicious calcifications or architectural distortion. No areas of c oncern. IMPRESSION: NEGATIVE MAMMOGRAM. BIRADS 1. BREAST DENSITY: b. There are scattered areas of fibroglandular density. BIRAD: ASSESSMENT: 1 NEGATIVE RECOMMENDATION: ROUTINE SCREENING COMMENT: The patient has been notified of the results by letter per MQSA requirements. Additional no tification policies are in place for contacting patient with suspicious or incomplete findings. Quality ID #225: The [employer] recommends an annual screening mammogram for women aged 40 years or over. This facility utilizes a reminder system to ensure that all patients receive reminder letters, and/or direct phone calls for appointments. This includes reminders for routine scr eening mammograms, diagnostic mammograms, or other Breast Imaging Interventions when appropriate. Th is patient will be placed in the appropriate reminder system. TECHNICAL DOCUMENTATION: FINDING NUMBER: (1) ASSESSMENT: (1) JOB ID: [id number] [employer]- All Rights Reserved Reading location - IP/workstation name: [email or web address]
== END ==
LOC: WI 13:53
PROVIDERS: ATTEND Internal Medicine
DX: Z12.31 Encounter for screening mammogram for malignant neoplasm of breast (principal)
CPT/HCPCS: 77063; 77067

== ENCOUNTER → 2019-08-17 | Outpatient (CLI) | payer MEDICARE, MEDICAID ==
--- NOTE | 2019-08-17 13:59 | RADIOLOGY REPORT (SQ) ---
EXAM DESCRIPTION: CT ABD/PELVIS WITH IV ONLY IMAGES COMPLETED DATE/TIME: 08/17/2019 1:04 pm REASON FOR STUDY: R10.84 GENERALIZED ABDOMINAL PAIN R10.84 GENERALIZED ABDOMINAL PAIN R11.0 NAUSEA COMPARISON: 11/09/2017 TECHNIQUE: CT scan of the abdomen and pelvis performed using helical scanning technique with dynamic intravenous contrast injection. No oral contrast. Images reviewed with lung, soft tissue, and bone windows. Reconstructed coronal and sagittal MPR images reviewed. Delayed images for evaluation of the urinary system also acquired. All images stored on PACS. All CT scanners at this facility use dose modulation, iterative reconstruction, and/or weight based d osing when appropriate to reduce radiation dose to as low as reasonably achievable (ALARA). [facility]: Dose Right [facility]: CareDose [facility]: Dose Right [facility]: Teradose 4D [facility]: [employer] CONTRAST TYPE AND DOSE: contrast/concentration: Isovue 350.00 mg/ml; Total Contrast Delivered: 73.0 ml; Total Saline Delivered: 66.0 ml RENAL FUNCTION: GFR > 60. RADIATION DOSE: CT Rad equipment meets quality standard of care and radiation dose reduction techniq ues were employed. CTDIvol: 4.9 - 5.0 mGy. DLP: 492 mGy-cm.. LIMITATIONS: None. FINDINGS: LOWER CHEST: No significant findings. No nodules or infiltrates. LIVER: Fatty change. Sub capsular nodularity. Normal size. No dilated ducts SPLEEN: Normal size. No focal lesions. PANCREAS: No masses. No significant calcifications. No adjacent inflammation or peripancreatic fluid collections. Pancreatic duct not dilated. GALLBLADDER: No identified stones by CT criteria. No inflammatory changes to suggest cholecystitis. ADRENAL GLANDS: No significant masses or asymmetry. RIGHT KIDNEY AND URETER: No solid masses. No significant calcifications. No hydronephrosis or hyd roureter. LEFT KIDNEY AND URETER: No solid masses. No significant calcifications. No hydronephrosis or hydr oureter. AORTA AND VESSELS: No aneurysm. No dissection. Renal arteries, SMA, celiac without stenosis. RETROPERITONEUM: No retroperitoneal adenopathy, hemorrhage or masses. BOWEL AND PERITONEAL CAVITY: No masses or inflammatory changes. No free fluid or peritoneal masses. APPENDIX: Normal. PELVIS: Calcified fibroids. ABDOMINAL WALL: No masses. No hernias. BONES: No significant or acute findings. OTHER: No other significant finding. IMPRESSION: 1. No acute findings. 2. Cirrhosis. No ascites. TECHNICAL DOCUMENTATION: JOB ID: [id number] Quality ID # [id number]: Final reports with documentation of one or more dose reduction techniques (e.g., Au tomated exposure control, adjustment of the mA and/or kV according to patient size, use of iterative reconstruction technique) 2010 [email or web address]- All Rights Reserved Reading location - IP/workstation name: [email or web address]
== END ==
LOC: RAD 12:24
PROVIDERS: ATTEND Internal Medicine
DX: R10.84 Generalized abdominal pain (principal)
CPT/HCPCS: 74177; 82565

== ENCOUNTER → 2019-09-14 | Outpatient (CLI) | payer MEDICARE, MEDICAID ==
--- NOTE | 2019-09-14 10:22 | RADIOLOGY REPORT (SQ) ---
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 Additio nal selected color Doppler and spectral images recorded. LIMITATIONS: None. FINDINGS: PANCREAS: No masses. Normal echotexture. Mild nodularity is again noted. LIVER: No masses. Echotexture normal. LIVER VASCULATURE: Normal directional flow of the main portal vein and hepatic veins. GALLBLADDER: No stones. Normal wall thickness. No pericholecystic fluid. ULTRASOUND-DETECTED DICKSON'S SIGN: Negative. INTRAHEPATIC DUCTS AND COMMON DUCT: CBD and intrahepatic ducts normal caliber. No filling defects. AORTA: No aneurysm. RIGHT KIDNEY: Normal size. Normal echogenicity. No solid or suspicious masses. No hydronephrosis. No calcifications. PERITONEAL AND RIGHT PLEURAL SPACE: No ascites or effusions. OTHER: No other significant findings. IMPRESSION: Liver demonstrates slightly nodular contour. No other significant findings. TECHNICAL DOCUMENTATION: JOB ID: [id number] 2010 [employer]- All Rights Reserved Reading location - IP/workstation name: [email or web address]
== END ==
LOC: RAD 08:28
PROVIDERS: ATTEND Internal Medicine Gastroenterology
DX: B18.2 Chronic viral hepatitis C (principal); K74.69 Other cirrhosis of liver
CPT/HCPCS: 76705

== ENCOUNTER 2019-12-09 10:30 | Emergency (ER) | payer MEDICARE, MEDICAID ==
--- NOTE | 2019-12-09 10:57 | ER Document Report ---
ED Medical Screen (RME) - General Chief Complaint: Chest Pain Stated Complaint: FALL/RIGHT HIP,LEG,ARM PAIN Primary Care Provider: GIULIANO CISNEROS MD [Primary Care Provider] - Follow up as needed TRAVEL OUTSIDE OF THE [place] IN LAST 30 DAYS: No - HPI Notes: 12/09/19 10:55 64-year-old -[place] female with a history of hypertension presents to the emergency room for complaints of chest pain that started around 1030 this morning, reports chest pain was pressure and tightness that lasted for about 10 seconds and went away. Patient has not had any episode since that time. Patient denies any radiation of pain. Patient was at rest, states she woke up from sleep and the chest pain started. Patient is a former smoker, no cardiac history besides having hypertension. Reports that she states her father had a RI, states that her mother has hypercholesterolemia. Patient reports she has not been feeling well lately. On Saturday patient states she slipped and misstepped while walking, states she now has lower back pain and right ankle pain. Denies hitting head or change in level consciousness. Patient states she caught herself but twisted her back and hit her right ankle. Does not take baby aspirin, is not on any anticoagulant therapy. Patient's PCP is Dr. Cisneros. I have greeted and performed a rapid initial assessment of this patient. A comprehensive ED assessment and evaluation of the patient, analysis of test results and completion of the medical decision making process will be conducted by additional ED providers. PHYSICAL EXAMINATION: GENERAL: Well-appearing, well-nourished and in no acute distress NECK: Normal range of motion CV: s1, s2 regular LUNGS: No respiratory distress Musculoskeletal: Normal range of motion. Tenderness to right ankle on palpation on lateral aspect NEUROLOGICAL: Normal speech, she is in wheelchair SKIN: Warm, Dry, normal turgor, no rashes or lesions noted. - Related Data Allergies/Adverse Reactions: No Known Allergies Allergy (Verified 05/22/18 19:25) Past Medical History - Past Medical History Cardiac Medical History: Reports: Hx Hypertension Neurological Medical History: Denies: Hx Seizures Renal/ Medical History: Denies: Hx Peritoneal Dialysis GI Medical History: Reports: Hx Cirrhosis, Hx Gastroesophageal Reflux Disease, Hx Hepatitis - C Infectious Medical History: Reports: Hx Hepatitis - C Past Surgical History: Reports: Hx Section, Hx Gynecologic Surgery - left oophorectomy, Hx Hysterectomy - Immunizations Hx Diphtheria, Pertussis, Tetanus Vaccination: Yes Physical Exam - Vital signs Vitals: Temp Pulse Resp BP Pulse Ox 98.7 F 61 16 146/102 H 97 12/09/19 10:35 12/09/19 10:35 12/09/19 10:35 12/09/19 10:35 12/09/19 10:35 Course - Vital Signs Vital signs: Temp Pulse Resp BP Pulse Ox 98.7 F 61 16 146/102 H 97 12/09/19 10:35 12/09/19 10:35 12/09/19 10:35 12/09/19 10:35 12/09/19 10:35 Doctor's Discharge - Discharge Referrals: GIULIANO CISNEROS MD [Primary Care Provider] - Follow up as needed
[2019-12-09 11:40] LABS: ABSOLUTE EOSINOPHILS # (AUTO) 0.1 10^3/uL (0.0-0.6); ABSOLUTE LYMPHOCYTES (AUTO) 2.1 10^3/uL (0.5-4.7); ABSOLUTE MONOCYTES (AUTO) 0.6 10^3/uL (0.1-1.4); ABSOLUTE NEUT (AUTO) 3.4 10^3/uL (1.7-8.2); BASOPHILS % (AUTO) 0.7 % (0-2); EOSINOPHILS % (AUTO) 2.3 % (0-6); HEMATOCRIT 37.5 % (36.0-47.0); HEMOGLOBIN 12.7 g/dL (12.0-15.5); LYMPHOCYTES % (AUTO) 33.1 % (13-45); MEAN CORPUSCULAR HEMOGLOBIN 32.4 pg (27.0-33.4); MEAN CORPUSCULAR HGB CONC 33.7 g/dL (32.0-36.0); MEAN CORPUSCULAR VOLUME 96 fl (80-97); MONOCYTES % (AUTO) 9.6 % (3-13); PLATELET COUNT 169 10^3/uL (150-450); RED CELL DISTRIBUTION WIDTH 13.3 % (11.5-14.0); SEGMENTED NEUTROPHILS % (AUTO) 54.3 % (42-78); TOTAL CELLS COUNTED % (AUTO) 100 %; WHITE BLOOD COUNT 6.2 10^3/uL (4.0-10.5)
--- NOTE | 2019-12-09 11:52 | RADIOLOGY REPORT (SQ) ---
EXAM DESCRIPTION: ANKLE RIGHT COMPLETE IMAGES COMPLETED DATE/TIME: 12/09/2019 11:41 am REASON FOR STUDY: s/p fall x4 days ago, R ankle and back pain COMPARISON: None. NUMBER OF VIEWS: Three views. TECHNIQUE: AP, lateral, and oblique radiographic images acquired of the right ankle. LIMITATIONS: None. FINDINGS: MINERALIZATION: Normal. BONES: No acute fracture or dislocation. The ankle mortise and talar dome are intact. JOINTS: No effusions. SOFT TISSUES: No soft tissue swelling or radiopaque foreign body. OTHER: Enthesophytes at the calcaneal insertion of the Achilles tendon. IMPRESSION: No acute osseous abnormality of the right ankle. TECHNICAL DOCUMENTATION: JOB ID: [id number] 2010 [employer] All Rights Reserved Reading location - IP/workstation name: [email or web address]
--- NOTE | 2019-12-09 11:53 | RADIOLOGY REPORT (SQ) ---
EXAM DESCRIPTION: CHEST SINGLE VIEW IMAGES COMPLETED DATE/TIME: 12/09/2019 11:41 am REASON FOR STUDY: left sided chest pain COMPARISON: 01/11/2019 EXAM PARAMETERS: NUMBER OF VIEWS: One view. TECHNIQUE: Single frontal radiographic view of the chest acquired. RADIATION DOSE: NA LIMITATIONS: None. FINDINGS: LUNGS AND PLEURA: No opacities, masses or pneumothorax. No pleural effusion. MEDIASTINUM AND HILAR STRUCTURES: No masses. Contour normal. HEART AND VASCULAR STRUCTURES: Heart normal in size. Normal vasculature. BONES: No acute findings. HARDWARE: None in the chest. OTHER: No other significant finding. IMPRESSION: NO ACUTE RADIOGRAPHIC FINDING IN THE CHEST. TECHNICAL DOCUMENTATION: JOB ID: [id number] 2010 [employer]- All Rights Reserved Reading location - IP/workstation name: [email or web address]
--- NOTE | 2019-12-09 11:55 | RADIOLOGY REPORT (SQ) ---
EXAM DESCRIPTION: L SPINE WHOLE IMAGES COMPLETED DATE/TIME: 12/09/2019 11:41 am REASON FOR STUDY: s/p fall x4 days ago, R ankle and back pain COMPARISON: AP, lateral and oblique views of the lumbar spine from 03/04/2012. NUMBER OF VIEWS: Five views including obliques. TECHNIQUE: AP, lateral, oblique, and sacral radiographic images acquired of the lumbar spine. LIMITATIONS: None. FINDINGS: MINERALIZATION: Normal. SEGMENTATION: There are 5 lumbar-type vertebral bodies. There is no transitional segment at the lumb osacral junction. ALIGNMENT: Normal. VERTEBRAE: The lumbar vertebral body heights are preserved. There is no fracture. DISCS: The L3-L4, L4-L5 and L5-S1 intervertebral disc spaces are narrowed. POSTERIOR ELEMENTS: Degeneration of the L3-L4, L4-L5 and L5-S1 facet joints. There is no pars intera rticularis defect. HARDWARE: None in the spine. PARASPINAL SOFT TISSUES: Normal. PELVIS: Intact. OTHER: No other finding. IMPRESSION: NORMAL 5 VIEW LUMBAR SPINE. TECHNICAL DOCUMENTATION: JOB ID: [id number] 2010 [employer]- All Rights Reserved Reading location - IP/workstation name: [email or web address]
[2019-12-09 12:09] LABS: CREATINE KINASE MB 0.65 ng/mL (<4.55)
[2019-12-09 12:10] LABS: TROPONIN I < 0.012 ng/mL
[2019-12-09 12:12] LABS: ALBUMIN 4.5 g/dL (3.5-5.0); ALKALINE PHOSPHATASE 69 U/L (38-126); ANION GAP 5 (5-19); ASPARTATE AMINO TRANSFERASE 25 U/L (14-36); BILIRUBIN,TOTAL 0.7 mg/dL (0.2-1.3); BLOOD UREA NITROGEN 13 mg/dL (7-20); CALCIUM 10.1 mg/dL (8.4-10.2); CARBON DIOXIDE 33 mmol/L (22-30); CHLORIDE 100 mmol/L (98-107); CREATINE KINASE 63 U/L (30-135); GLUCOSE 102 mg/dL (75-110); POTASSIUM 4.1 mmol/L (3.6-5.0); TOTAL PROTEIN 8.3 g/dL (6.3-8.2)
--- NOTE | 2019-12-09 12:45 | ER Document Report ---
ED General - General Chief Complaint: Chest Pain Stated Complaint: FALL/RIGHT HIP,LEG,ARM PAIN Time Seen by Provider: 12/09/19 12:44 Primary Care Provider: GIULIANO CISNEROS MD [Primary Care Provider] - Follow up as needed TRAVEL OUTSIDE OF THE [place] IN LAST 30 DAYS: No - HPI Patient complains to provider of: Chest Pain Notes: Well-appearing female presents with resolved episode of chest pain earlier today 6/10 throbbing in nature without radiation. Nothing makes it better or worse. Patient denies symptoms at this time. "She just wanted to get checked out. Patient also has a complaints of some back pain and ankle pain 8/10 sharp nature without radiation nothing makes it better or worse. - Related Data Allergies/Adverse Reactions: No Known Allergies Allergy (Verified 05/22/18 19:25) Past Medical History - Social History Smoking Status: Unknown if Ever Smoked Family History: Reviewed & Not Pertinent - Past Medical History Cardiac Medical History: Reports: Hx Hypertension Neurological Medical History: Denies: Hx Seizures Renal/ Medical History: Denies: Hx Peritoneal Dialysis GI Medical History: Reports: Hx Cirrhosis, Hx Gastroesophageal Reflux Disease, Hx Hepatitis - C Infectious Medical History: Reports: Hx Hepatitis - C Past Surgical History: Reports: Hx Section, Hx Gynecologic Surgery - left oophorectomy, Hx Hysterectomy - Immunizations Hx Diphtheria, Pertussis, Tetanus Vaccination: Yes Hx Pneumococcal Vaccination: 03/20/13 Review of Systems - Review of Systems Notes: REVIEW OF SYSTEMS: CONSTITUTIONAL: -fevers, -chills EENT: -eye pain, -difficulty swallowing, -nasal congestion CARDIOVASCULAR: positive chest pain, -syncope. RESPIRATORY: -cough, -SOB GASTROINTESTINAL: -abdominal pain, -nausea, -vomiting, -diarrhea GENITOURINARY: -dysuria, -hematuria MUSCULOSKELETAL: positive back pain, -neck pain, ankle pain SKIN: -rash or skin lesions. HEMATOLOGIC: -easy bruising or bleeding. LYMPHATIC: -swollen, enlarged glands. NEUROLOGICAL: -altered mental status or loss of consciousness, -headache, - neurologic symptoms PSYCHIATRIC: -anxiety, -depression. ALL OTHER SYSTEMS REVIEWED AND NEGATIVE. Physical Exam - Vital signs Vitals: Temp Pulse Resp BP Pulse Ox 98.7 F 61 16 146/102 H 97 12/09/19 10:35 12/09/19 10:35 12/09/19 10:35 12/09/19 10:35 12/09/19 10:35 - Notes Notes: PHYSICAL EXAMINATION: GENERAL: Well-appearing, well-nourished and in no acute distress. HEAD: Atraumatic, normocephalic. EYES: Pupils equal round, sclera anicteric, conjunctiva are normal. ENT: Surgical mask in place. NECK: Normal range of motion, LUNGS: No respiratory Distress, normal chest rise EXTREMITIES: Normal range of motion, No cyanosis. NEUROLOGICAL: Cranial nerves grossly intact. Normal speech, PSYCH: Normal mood, normal affect. SKIN: Warm, Dry, Course - Re-evaluation Re-evalutation: 12/09/19 13:05 Ill-appearing female no acute distress presents with resolved symptoms. Had some chest pain. Extensive lab work-up unremarkable EKG is nonischemic chest x- ray normal, ankle and back films normal will be discharged home follow-up PCP - Vital Signs Vital signs: Temp Pulse Resp BP Pulse Ox 98.7 F 61 16 146/102 H 97 12/09/19 10:35 12/09/19 10:35 12/09/19 10:35 12/09/19 10:35 12/09/19 10:35 - Laboratory Result Diagrams: 12/09/19 11:20 12/09/19 11:20 Laboratory results interpreted by me: 12/09/19 11:20 Carbon Dioxide 33 H Total Protein 8.3 H - EKG Interpretation by Me Additional EKG results interpreted by me: 12/09/19 13:05 Sinus rhythm, no ST elevation, no pathologic T wave inversion Discharge - Discharge Clinical Impression: Chest pain Qualifiers: Chest pain type: unspecified Qualified Code(s): R07.9 - Chest pain, unspecified Condition: Stable Disposition: HOME, SELF-CARE Instructions: Chest Pain of Unclear Cause ([facility]) Referrals: GIULIANO CISNEROS MD [Primary Care Provider] - Follow up as needed
[2019-12-09 13:35] VITALS: BP 147/95
--- NOTE | 2019-12-09 15:00 | EKG REPORT ---
SEVERITY:- ABNORMAL ECG - SINUS RHYTHM LEFT AXIS DEVIATION NONSPECIFIC T ABNORMALITIES, DIFFUSE LEADS : Confirmed by: Anthony Ponce MD 09-Dec-2019 14:59:11
== END 2019-12-09 13:35 | disposition home or self-care (01) ==
LOC: ER 10:30
DX: R07.9 Chest pain, unspecified (principal); M54.9 Dorsalgia, unspecified; M25.579 Pain in unspecified ankle and joints of unspecified foot; W01.0XXA Fall on same level from slipping, tripping and stumbling without subsequent striking against object, initial encounter; I10 Essential (primary) hypertension
CPT/HCPCS: 36415; 71045; 72110; 80053; 82550; 82553; 84484; 85025; 93005; 93010; 99285